=== PATIENT | female | born 1960 | race Two or more races ===

== ENCOUNTER 2023-11-19 18:40 | Inpatient (IN) | payer OTHER ==
[~2023-11-19] VITALS: Ht 170.2 cm; Wt 137.0 kg
[~2023-11-19 18:40] MED LIST: ABILIFY10 MG; AMLODIPINE BESYL5 MG; ATACAND HCT 31 UDTAB; AZITHROMYCIN500 MG PO; CLONAZEPAM0.5 MG; DALMANE30 MG; DOLOGEN CAPLET1 EACH PO; LEVAQUIN750 MG PO; MEDROL4 MG PO; PRISTIQ ER50 MG; PROTONIX20 MG PO; PROVENTIL3 ML/2.5 M IH; TUSICOF LIQUID120 ML PO; TUSSIONEX PENNKI5 ML PO; XOPENEX1.25 MG/0. IH; ZYNCOF 20-400120 ML PO
[2023-11-19] MEDS ORDERED: COZAAR25 MG PO (18:57)
[2023-11-19] MEDS ORDERED: NEURONTIN300 MG PO (18:57)
[2023-11-19] MEDS ORDERED: ATIVAN0.5 M1 PO (18:58)
[2023-11-19] MEDS ORDERED: TOPROL XL50 M1 PO (18:58)
[2023-11-19] MEDS ORDERED: LAMICTAL25 MG PO (18:58)
[2023-11-19] MEDS ORDERED: NIFEDIPINE20 MG PO (18:58)
[2023-11-19] MEDS ORDERED: RESTORIL7.5 MG PO (18:59)
[2023-11-19] MEDS ORDERED: LEVALBUTEROL HCL 1.25 MG/3 ML SOLUTION IH SCH (20:00)
[2023-11-19] MEDS ORDERED: MAGNESIUM SULFATE IN WATER 2 GM/50 ML PIGGYBAG IV ONE (20:00)
[2023-11-19] MEDS ORDERED: METHYLPREDNISOLONE SOD SUCC 125 MG VIAL IV ONE (20:00)
[2023-11-19] MEDS ORDERED: IPRATROPIUM BROMIDE 0.5 MG/2.5 ML AMPUL.NEB IH SCH (20:00)
[2023-11-19 20:35] LABS: HEMATOCRIT 30.7 % (36.0-45.00); HEMOGLOBIN 10.1 g/dL (12.0-15.00); MEAN CORPUSCULAR HEMOGLOBIN 28.1 pg (27.00-32.0); MEAN CORPUSCULAR HGB CONC 33.1 g/dl (32.0-36.0); PLATELET COUNT 256 K/uL (150-450); RED BLOOD COUNT 3.61 M/uL (4.00-6.00); RED CELL DISTRIBUTION WIDTH 16.6 % (11.5-14.5)
[2023-11-19 20:52] LABS: CALCIUM 9.1 mg/dL (8.5-10.1); CREATININE SERUM 1.57 mg/dL (0.55-1.02); GFR 33.49; POTASSIUM 4.29 mEq/L (3.5-5.1)
[2023-11-19] MEDS ORDERED: INSULIN REGULAR, HUMAN 1,000 UNIT/10 ML UNITS SUBCUTANEO ONE (21:45)
[2023-11-19 22:55] LABS: ABG PH 7.402 (7.35-7.45); ABG pCO2 46.6 mmHg (35-45)
[2023-11-19 22:56] LABS: ABG PO2 49.3 mmHg (80-100); BASE EXCESS 2.8 mmol/l; BICARBONATE 28.3 mmol/l (23-25)
[2023-11-19 22:57] LABS: Tco2 29.8 mmol/l; allen test SATISFACTORY; o2 21 %; puncture site RADIAL LEFT
[2023-11-19 22:59] LABS: SaO2 84.9 %
[2023-11-19] MEDS ORDERED: FUROsemide 40 MG/4 ML VIAL IV ONE (23:15)
[2023-11-19] MEDS ORDERED: NITROGLYCERIN IN 5 % DEXTROSE 50 MG/250 ML BOTTLE IV ONE (23:15)
[2023-11-19] MEDS ORDERED: OSELTAMIVIR PHOSPHATE 75 MG CAPSULE PO SCH (23:26)
[2023-11-19] MEDS ORDERED: ACETAMINOPHEN 500 MG GEL..CAP PO PRN (23:30)
[2023-11-19] MEDS ORDERED: DEXTROSE 50 % IN WATER 0.5 G/ML DISP.SYRIN IV PRN (23:30)
[2023-11-19] MEDS ORDERED: CEFTRIAXONE SODIUM 2,000 MG in 0.9 % SODIUM CHLORIDE 100 ML IV SCH (23:30)
[2023-11-19] MEDS ORDERED: INSULIN LISPRO 1,000 UNIT/10 ML UNITS SUBCUTANEO PRN (23:30)
[2023-11-19] MEDS ORDERED: NITROGLYCERIN IN 5 % DEXTROSE 250 ML IV SCH (23:39)
[2023-11-20] MEDS ORDERED: LEVALBUTEROL HCL 1.25 MG/3 ML SOLUTION IH SCH (01:00)
[2023-11-20] MEDS ORDERED: IPRATROPIUM BROMIDE 0.5 MG/2.5 ML AMPUL.NEB IH SCH (01:00)
[2023-11-20 01:48] LABS: INR 1.03; PARTIAL THROMBOPLASTIN TIME 23.9 SECONDS (22.0-34.0); PROTHROMBIN TIME 10.8 SECONDS (9.0-11.5)
[2023-11-20 01:49] LABS: MAGNESIUM 2.3 mg/dL (1.8-2.4); PHOSPHOROUS 3.5 mg/dL (2.5-4.9)
[2023-11-20 02:45] LABS: PH,URINE 5.5 (5.0-8.0); URINE APPEARANCE Clear; URINE BILIRRUBIN Negative (NEGATIVE); URINE BLOOD Trace; URINE COLOR Yellow; URINE LEUKOCYTE Negative; URINE NITRATE Negative
[2023-11-20 02:48] LABS: URINE EPITHELIAL CELLS 1.8 uL (0.0-38.8); URINE RBC 3.1 uL (0.0-20.8); URINE WBC 4.3 uL (0.0-23.2)
[2023-11-20 02:50] LABS: URINE GLUCOSE >=1000 MG/DL (NEGATIVE); URINE PROTEIN 300 (NEGATIVE)
[2023-11-20 06:28] LABS: ABG PH 7.388 (7.35-7.45); ABG PO2 96.2 mmHg (80-100); ABG pCO2 44.9 mmHg (35-45); BICARBONATE 26.4 mmol/l (23-25); SaO2 97.4 %; Tco2 27.8 mmol/l; o2 32 %; puncture site RADIAL RIGHT
[2023-11-20 06:29] LABS: allen test SATISFACTORY
[2023-11-20] MEDS ORDERED: FUROsemide 20 MG/2 ML VIAL IV SCH (09:00)
[2023-11-20] MEDS ORDERED: FAMOTIDINE/PF 20 MG in 0.9 % SODIUM CHLORIDE 8 ML IV PUSH SCH (09:00)
[2023-11-20] MEDS ORDERED: PATIENTS OWN MEDICATION (MEDICAMENTO EN PISO) PO SCH ×2 (09:00)
[2023-11-20] MEDS ORDERED: OSELTAMIVIR PHOSPHATE 30MG CAP PO SCH (09:00)
[2023-11-20] MEDS ORDERED: GABAPENTIN 800 MG TABLET PO SCH (09:00)
[2023-11-20] MEDS ORDERED: ENOXAPARIN SODIUM 30 MG/0.3 ML SYRINGE SUBCUTANEO SCH (09:00)
[2023-11-20] MEDS ORDERED: AZITHROMYCIN 500 MG in DEXTROSE 5 % IN WATER 250 ML IV SCH (09:00)
[2023-11-20] MEDS ORDERED: INSULIN GLARGINE,HUM.REC.ANLOG 1,000 UNITS/10 ML UNITS SUBCUTANEO STA (09:41)
[2023-11-20] MEDS ORDERED: MONTELUKAST SODIUM 10 MG TABLET PO SCH (17:00)
[2023-11-20] MEDS ORDERED: VANCOMYCIN HCL 5 MG/ML REDILUIDO IV SCH (17:00)
[2023-11-20] MEDS ORDERED: CEFEPIME HCL 2,000 MG VIAL IV SCH (21:00)
[2023-11-21 08:14] LABS: ALBUMIN 2.6 gm/dL (3.4-5.0); BILIRUBIN TOTAL 0.3 mg/dL (0.3-1.2); CALCIUM 8.8 mg/dL (8.5-10.1); CREATININE SERUM 1.4 mg/dL (0.55-1.02); GFR 38.23; GLOBULINA 3.6 G/DL (2.4-3.5); MAGNESIUM 2.2 mg/dL (1.8-2.4); PHOSPHOROUS 3.7 mg/dL (2.5-4.9); POTASSIUM 4.21 mEq/L (3.5-5.1); TOTAL PROTEIN 6.2 gm/dL (6.4-8.2)
[2023-11-21 08:30] LABS: C-REACTIVE PROTEIN 1.74 MG/DL (0.00-0.29)
[2023-11-21] MEDS ORDERED: INSULIN GLARGINE,HUM.REC.ANLOG 1,000 UNITS/10 ML UNITS SUBCUTANEO SCH ×2 (09:00)
[2023-11-21] MEDS ORDERED: INSULIN LISPRO 1,000 UNIT/10 ML UNITS SUBCUTANEO SCH (12:00)
[2023-11-21 13:23] LABS: HEMATOCRIT 27.2 % (36.0-45.00); MEAN CELL VOLUME 85.4 fL (80.00-100.00); MEAN CORPUSCULAR HEMOGLOBIN 28.2 pg (27.00-32.0); RED BLOOD COUNT 3.18 M/uL (4.00-6.00); RED CELL DISTRIBUTION WIDTH 16.8 % (11.5-14.5)
[2023-11-21 14:03] LABS: PLATELET COUNT 194 K/uL (150-450)
[2023-11-21] MEDS ORDERED: FAMOTIDINE/PF 20 MG in 0.9 % SODIUM CHLORIDE 8 ML IV PUSH SCH (21:00)
[2023-11-21] MEDS ORDERED: LORazepam 1 MG TABLET PO SCH (21:00)
[2023-11-22 09:08] LABS: URINE PROT QUANT 24HR 218.8 MG/DL
[2023-11-22 09:18] LABS: URINE PROT QUANT 24 HR 4868.3 MG/24HR (42-225)
[2023-11-22] MEDS ORDERED: ISOSORBIDE MONONITRATE 30 MG TABLET PO STA (10:04)
[2023-11-23] MEDS ORDERED: GUAIFENESIN/DEXTROMETHORPHAN 100 MG/5 ML ML PO SCH
[2023-11-23 06:49] LABS: HEMATOCRIT 26.3 % (36.0-45.00); MEAN CELL VOLUME 84.7 fL (80.00-100.00); MEAN CORPUSCULAR HGB CONC 33.3 g/dl (32.0-36.0); PLATELET COUNT 195 K/uL (150-450); RED CELL DISTRIBUTION WIDTH 16.4 % (11.5-14.5)
[2023-11-23 06:50] LABS: HEMOGLOBIN 8.8 g/dL (12.0-15.00); MEAN CORPUSCULAR HEMOGLOBIN 28.3 pg (27.00-32.0)
[2023-11-23 07:04] LABS: ALBUMIN 2.5 gm/dL (3.4-5.0); BILIRUBIN TOTAL 0.39 mg/dL (0.3-1.2); CALCIUM 8.6 mg/dL (8.5-10.1); CREATININE SERUM 1.25 mg/dL (0.55-1.02); GFR 43.57; MAGNESIUM 2.3 mg/dL (1.8-2.4); PHOSPHOROUS 3.4 mg/dL (2.5-4.9); POTASSIUM 4.6 mEq/L (3.5-5.1); TOTAL PROTEIN 6.5 gm/dL (6.4-8.2)
[2023-11-23 07:20] LABS: C-REACTIVE PROTEIN 5.54 MG/DL (0.00-0.29)
[2023-11-23] MEDS ORDERED: ISOSORBIDE MONONITRATE 30 MG TABLET PO SCH (09:00)
[2023-11-25 11:58] LABS: ABG PH 7.389 (7.35-7.45); ABG pCO2 52.6 mmHg (35-45)
[2023-11-25 11:59] LABS: ABG PO2 56.9 mmHg (80-100); BASE EXCESS 4.7 mmol/l; Tco2 32.6 mmol/l; allen test SATISFACTORY; o2 21 %; puncture site BRADIAL LEFT
[2023-11-25 12:01] LABS: SaO2 89.3 %
[2023-11-26] MEDS ORDERED: FAMOTIDINE/PF 20 MG/2 ML VIAL ONE (07:51)
[2023-11-26] MEDS ORDERED: NIFEDIPINE 30 MG TAB.SA.OSM PO SCH (09:00)
[2023-11-26] MEDS ORDERED: LOSARTAN POTASSIUM 50 MG TABLET PO SCH (09:22)
[2023-11-26] MEDS ORDERED: INSULIN LISPRO 1,000 UNIT/10 ML UNITS SUBCUTANEO SCH (17:00)
[2023-11-26] MEDS ORDERED: MAGNESIUM SULFATE 1,000 MG in 0.9 % SODIUM CHLORIDE 50 ML IV ONE (17:15)
[2023-11-26] MEDS ORDERED: POTASSIUM CHLORIDE IN WATER 100 ML IV ONE (17:15)
[2023-11-26] MEDS ORDERED: AMIODARONE HCL 50 MG/ML AMPUL IV ONE (17:15)
[2023-11-26] MEDS ORDERED: MAGNESIUM SULFATE/D5W 1GM/100ML PIGGYBAG IV ONE (17:16)
[2023-11-26 17:44] LABS: MAGNESIUM 2.2 mg/dL (1.8-2.4); PHOSPHOROUS 2.9 mg/dL (2.5-4.9); POTASSIUM 4.14 mEq/L (3.5-5.1)
[2023-11-26 17:46] LABS: ALBUMIN 2.6 gm/dL (3.4-5.0); BILIRUBIN TOTAL 0.33 mg/dL (0.3-1.2); CALCIUM 8.7 mg/dL (8.5-10.1); CREATININE SERUM 1.23 mg/dL (0.55-1.02); GFR 44.39; GLOBULINA 3.9 G/DL (2.4-3.5); POTASSIUM 4.13 mEq/L (3.5-5.1); TOTAL PROTEIN 6.5 gm/dL (6.4-8.2)
[2023-11-27] MEDS ORDERED: INSULIN GLARGINE,HUM.REC.ANLOG 1,000 UNITS/10 ML UNITS SUBCUTANEO SCH (09:00)
[2023-11-28] MEDS ORDERED: INSULIN LISPRO 1,000 UNIT/10 ML UNITS SUBCUTANEO SCH (12:37)
[2023-11-28 19:07] LABS: ABG PO2 48.6 mmHg (80-100); ABG pCO2 48.6 mmHg (35-45); BASE EXCESS 6.8 mmol/l; BICARBONATE 32.3 mmol/l (23-25); SaO2 86.3 %; Tco2 33.8 mmol/l; o2 21 %
[2023-11-28 19:08] LABS: allen test SATISFACTORY; puncture site RADIAL RIGHT
[2023-11-28 19:08] LABS: CALCIUM 8.4 mg/dL (8.5-10.1); CREATININE SERUM 1.5 mg/dL (0.55-1.02); GFR 35.3; POTASSIUM 4.53 mEq/L (3.5-5.1)
[2023-11-28] MEDS ORDERED: 0.9 % SODIUM CHLORIDE 1,000 ML IV SCH (20:00)
[2023-11-28] MEDS ORDERED: KETOROLAC TROMETHAMINE 30 MG VIAL IM ONE (23:00)
[2023-11-29 06:54] LABS: ALBUMIN 2.4 gm/dL (3.4-5.0); BILIRUBIN TOTAL 0.27 mg/dL (0.3-1.2); CALCIUM 8.7 mg/dL (8.5-10.1); CREATININE SERUM 1.42 mg/dL (0.55-1.02); GFR 37.61; GLOBULINA 3.9 G/DL (2.4-3.5); POTASSIUM 4.29 mEq/L (3.5-5.1); TOTAL PROTEIN 6.3 gm/dL (6.4-8.2)
[2023-11-29] MEDS ORDERED: FUROsemide 40 MG/4 ML VIAL IV SCH (09:00)
[2023-11-29] MEDS ORDERED: METHYLPREDNISOLONE SOD SUCC 40 MG VIAL IV ONE (18:30)
[2023-11-29] MEDS ORDERED: KETOROLAC TROMETHAMINE 30 MG VIAL IM SCH (21:00)
[2023-11-30 07:13] LABS: MEAN CELL VOLUME 84.9 fL (80.00-100.00); MEAN CORPUSCULAR HGB CONC 33.7 g/dl (32.0-36.0); PLATELET COUNT 254 K/uL (150-450); RED BLOOD COUNT 2.95 M/uL (4.00-6.00); RED CELL DISTRIBUTION WIDTH 15.9 % (11.5-14.5)
[2023-11-30 07:20] LABS: HEMOGLOBIN 8.4 g/dL (12.0-15.00); MEAN CORPUSCULAR HEMOGLOBIN 28.4 pg (27.00-32.0)
[2023-11-30] MEDS ORDERED: NIFEDIPINE 60 MG TAB.SA.OSM PO SCH (09:00)
[2023-11-30] MEDS ORDERED: NITROGLYCERIN IN 5 % DEXTROSE 250 ML IV SCH (11:15)
[2023-11-30 11:30] LABS: ABG PH 7.392 (7.35-7.45)
[2023-11-30 11:31] LABS: ABG PO2 69.9 mmHg (80-100); ABG pCO2 51.4 mmHg (35-45); BASE EXCESS 4.4 mmol/l; BICARBONATE 30.6 mmol/l (23-25); SaO2 93.8 %; Tco2 32.2 mmol/l; allen test SATISFACTORY; o2 40 %; puncture site RADIAL RIGHT
[2023-12-01 07:23] LABS: ALBUMIN 2.5 gm/dL (3.4-5.0); BILIRUBIN TOTAL 0.3 mg/dL (0.3-1.2); CALCIUM 8.8 mg/dL (8.5-10.1); CREATININE SERUM 1.4 mg/dL (0.55-1.02); GFR 38.23; POTASSIUM 4.21 mEq/L (3.5-5.1); TOTAL PROTEIN 6.5 gm/dL (6.4-8.2)
[2023-12-01 07:26] LABS: HEMATOCRIT 24.5 % (36.0-45.00); MEAN CELL VOLUME 84.6 fL (80.00-100.00); MEAN CORPUSCULAR HEMOGLOBIN 28.2 pg (27.00-32.0); MEAN CORPUSCULAR HGB CONC 33.3 g/dl (32.0-36.0); PLATELET COUNT 286 K/uL (150-450); RED CELL DISTRIBUTION WIDTH 16.6 % (11.5-14.5)
[2023-12-01 07:29] LABS: HEMOGLOBIN 8.2 g/dL (12.0-15.00)
[2023-12-01] MEDS ORDERED: ENALAPRILAT DIHYDRATE 1.25 MG/ML VIAL IV ONE (15:47)
[2023-12-01] MEDS ORDERED: INSULIN LISPRO 1,000 UNIT/10 ML UNITS SUBCUTANEO ONE (17:33)
[2023-12-02] MEDS ORDERED: INSULIN GLARGINE,HUM.REC.ANLOG 1,000 UNITS/10 ML UNITS SUBCUTANEO SCH (09:00)
[2023-12-02] MEDS ORDERED: NIFEDIPINE 60 MG TAB.SA.OSM PO SCH (09:00)
[2023-12-02] MEDS ORDERED: FAMOTIDINE/PF 20 MG in 0.9 % SODIUM CHLORIDE 8 ML IV PUSH SCH (10:08)
[2023-12-02] MEDS ORDERED: ENALAPRILAT DIHYDRATE 1.25 MG/ML VIAL IV PRN (10:15)
[2023-12-02] MEDS ORDERED: FUROsemide 40 MG/4 ML VIAL IV ONE (15:00)
[2023-12-02 22:23] LABS: ABG PO2 93.3 mmHg (80-100); ABG pCO2 49.8 mmHg (35-45); BICARBONATE 30.8 mmol/l (23-25); SaO2 97.4 %; Tco2 32.3 mmol/l; allen test SATISFACTORY; o2 50 %; puncture site RADIAL RIGHT
[2023-12-03] MEDS ORDERED: INSULIN GLARGINE,HUM.REC.ANLOG 1,000 UNITS/10 ML UNITS SUBCUTANEO STA (08:42)
[2023-12-03] MEDS ORDERED: FUROsemide 20 MG/2 ML VIAL IV SCH (09:00)
[2023-12-03] MEDS ORDERED: INSULIN GLARGINE,HUM.REC.ANLOG 1,000 UNITS/10 ML UNITS SUBCUTANEO SCH (09:00)
[2023-12-03] MEDS ORDERED: 0.9 % SODIUM CHLORIDE 10 ML VIAL IJ ONE (16:39)
[2023-12-04] MEDS ORDERED: INSULIN LISPRO 1,000 UNIT/10 ML UNITS SUBCUTANEO SCH (08:00)
[2023-12-04] MEDS ORDERED: INSULIN REGULAR, HUMAN 1,000 UNIT/10 ML UNITS IV STA (12:53)
[2023-12-05] MEDS ORDERED: 0.9 % SODIUM CHLORIDE 10 ML VIAL IJ ONE (08:51)
[2023-12-05] MEDS ORDERED: LOSARTAN POTASSIUM 50 MG,LOSARTAN POTASSIUM 25 MG PO SCH (09:00)
[2023-12-05] MEDS ORDERED: FUROsemide 40 MG TABLET PO SCH (09:00)
[2023-12-05 12:07] LABS: HEMATOCRIT 25.2 % (36.0-45.00); MEAN CORPUSCULAR HEMOGLOBIN 28.6 pg (27.00-32.0); MEAN CORPUSCULAR HGB CONC 33.3 g/dl (32.0-36.0); PLATELET COUNT 293 K/uL (150-450); RED BLOOD COUNT 2.93 M/uL (4.00-6.00); RED CELL DISTRIBUTION WIDTH 16.7 % (11.5-14.5)
[2023-12-05 12:11] LABS: HEMOGLOBIN 8.4 g/dL (12.0-15.00)
[2023-12-05 12:40] LABS: CALCIUM 9.1 mg/dL (8.5-10.1); CREATININE SERUM 1.54 mg/dL (0.55-1.02); GFR 34.25; POTASSIUM 4.91 mEq/L (3.5-5.1)
[2023-12-05] MEDS ORDERED: INSULIN REGULAR, HUMAN 1,000 UNIT/10 ML UNITS IV STA (15:28)
[2023-12-05] MEDS ORDERED: INSULIN LISPRO 1,000 UNIT/10 ML UNITS SUBCUTANEO STA (15:29)
[2023-12-05] MEDS ORDERED: INSULIN LISPRO 1,000 UNIT/10 ML UNITS SUBCUTANEO SCH (17:00)
[2023-12-05] MEDS ORDERED: GLUCAGON 1 MG VIAL IV STA (22:53)
[2023-12-06] MEDS ORDERED: GLUCAGON 1 MG VIAL IM STA ×2 (00:17→03:00)
[2023-12-06] MEDS ORDERED: LOSARTAN POTASSIUM 50 MG TABLET PO ONE (07:19)
[2023-12-06] MEDS ORDERED: FAMOTIDINE/PF 20 MG/2 ML VIAL ONE (07:20)
[2023-12-06] MEDS ORDERED: INSULIN GLARGINE,HUM.REC.ANLOG 1,000 UNITS/10 ML UNITS SUBCUTANEO SCH ×2 (09:00→21:00)
[2023-12-06] MEDS ORDERED: LOSARTAN POTASSIUM 100 MG TABLET PO SCH (09:00)
[2023-12-06] MEDS ORDERED: INSULIN LISPRO 1,000 UNIT/10 ML UNITS SUBCUTANEO SCH (12:00)
[2023-12-07] MEDS ORDERED: INSULIN LISPRO 1,000 UNIT/10 ML UNITS SUBCUTANEO ONE (02:30)
[2023-12-07] MEDS ORDERED: hydrALAZINE HCL 25 MG TABLET PO SCH (09:00)
[2023-12-07] MEDS ORDERED: DIPHENHYDRAMINE HCL 50 MG/ML VIAL 1ML IV STA (09:58)
[2023-12-07 10:17] LABS: HEMATOCRIT 27.5 % (36.0-45.00); HEMOGLOBIN 9.4 g/dL (12.0-15.00); MEAN CELL VOLUME 83.6 fL (80.00-100.00); MEAN CORPUSCULAR HEMOGLOBIN 28.5 pg (27.00-32.0); MEAN CORPUSCULAR HGB CONC 34.1 g/dl (32.0-36.0); PLATELET COUNT 288 K/uL (150-450); RED BLOOD COUNT 3.29 M/uL (4.00-6.00); RED CELL DISTRIBUTION WIDTH 17.2 % (11.5-14.5)
[2023-12-08] MEDS ORDERED: INSULIN LISPRO 1,000 UNIT/10 ML UNITS SUBCUTANEO SCH (08:00)
[2023-12-08] MEDS ORDERED: INSULIN GLARGINE,HUM.REC.ANLOG 1,000 UNITS/10 ML UNITS SUBCUTANEO SCH (09:00)
== END 2023-12-09 16:42 | disposition home or self-care (01) | DRG 291 ==
LOC: ER → ICU-2 23:32 → SURH 23:32 → MEDJ 11-20 15:02 → SURH 11-24 22:14
PROVIDERS: General Practice; Internal Medicine; Internal Medicine Infectious Disease; Internal Medicine Nephrology; ADMIT Internal Medicine; ATTEND Internal Medicine
PROC: BB24ZZZ Computerized Tomography (CT Scan) of Bilateral Lungs (ICD-10-PCS; principal; 2023-11-19)
PROC: B246ZZZ Ultrasonography of Right and Left Heart (ICD-10-PCS; 2023-11-19)
PROC: 0JBQ3ZZ Excision of Right Foot Subcutaneous Tissue and Fascia, Percutaneous Approach (ICD-10-PCS; 2023-11-27)
PROC: 0JBR3ZZ Excision of Left Foot Subcutaneous Tissue and Fascia, Percutaneous Approach (ICD-10-PCS; 2023-11-27)
PROC: CB121ZZ Planar Nuclear Medicine Imaging of Lungs and Bronchi using Technetium 99m (Tc-99m) (ICD-10-PCS; 2023-11-28)
PROC: B54DZZZ Ultrasonography of Bilateral Lower Extremity Veins (ICD-10-PCS; 2023-11-29)
PROC: B246ZZ4 Ultrasonography of Right and Left Heart, Transesophageal (ICD-10-PCS; 2023-12-01)
PROC: 5A09457 Assistance with Respiratory Ventilation, 24-96 Consecutive Hours, Continuous Positive Airway Pressure (ICD-10-PCS; 2023-12-01)
PROC: 30233N1 Transfusion of Nonautologous Red Blood Cells into Peripheral Vein, Percutaneous Approach (ICD-10-PCS; 2023-12-06)
DX: I13.0 Hypertensive heart and chronic kidney disease with heart failure and stage 1 through stage 4 chronic kidney disease, or unspecified chronic kidney disease (principal); I50.33 Acute on chronic diastolic (congestive) heart failure; J11.00 Influenza due to unidentified influenza virus with unspecified type of pneumonia; J90 Pleural effusion, not elsewhere classified; L03.116 Cellulitis of left lower limb; L03.115 Cellulitis of right lower limb; L97.528 Non-pressure chronic ulcer of other part of left foot with other specified severity; L97.518 Non-pressure chronic ulcer of other part of right foot with other specified severity; N17.8 Other acute kidney failure; J44.1 Chronic obstructive pulmonary disease with (acute) exacerbation; N18.9 Chronic kidney disease, unspecified; E11.22 Type 2 diabetes mellitus with diabetic chronic kidney disease; E11.621 Type 2 diabetes mellitus with foot ulcer; F43.23 Adjustment disorder with mixed anxiety and depressed mood; Z87.891 Personal history of nicotine dependence; Z79.4 Long term (current) use of insulin; E11.40 Type 2 diabetes mellitus with diabetic neuropathy, unspecified; E03.8 Other specified hypothyroidism; E11.649 Type 2 diabetes mellitus with hypoglycemia without coma; I73.89 Other specified peripheral vascular diseases; E66.01 Morbid (severe) obesity due to excess calories; D64.9 Anemia, unspecified; Z79.85 Long-term (current) use of injectable non-insulin antidiabetic drugs

== ENCOUNTER 2023-12-09 21:01 | Inpatient (IN) | payer OTHER ==
[~2023-12-09] VITALS: Ht 170.2 cm; Wt 137.0 kg
[~2023-12-09 21:01] MED LIST changes: +ATIVAN0.5 M1 PO; +COZAAR25 MG PO; +LAMICTAL25 MG PO; +NEURONTIN300 MG PO; +NIFEDIPINE20 MG PO; +RESTORIL7.5 MG PO; +TOPROL XL50 M1 PO
[2023-12-09] MEDS ORDERED: 0.9 % SODIUM CHLORIDE 1,000 ML IV STA (21:29)
--- NOTE | 2023-12-09 21:50 | NUR ---
SE RECIBE PTE ALERTA Y ORIENTADA X3 EN AMBULANCIA CUAL REFIER EDIFICULTAD RESPIRATORIA. SE OBSERVA PTE RESPIRANDO ABDOMINAL Y COMUNICANDOSE EN FRASES CORTAS. SE OBSERVA EDEME EN AMBAS EXTREMIDADES SUPERIORES Y ABDOMEN. PRESENTA EDEMA Y ERITEMA EN AMBAS PIERNAS. SE OBSERVA ABRASION SINSANGRADO EN LA PLANTA DEL PIE LADO DERECHO. VENTURY MASK AL 50%. SE BEVERLY S/V, SE CONECTA A MO ITOR CARDIACO Y OXIMETRIA DE PULSO CONTINUA. VENOPUNCIONES X3 PATENTES EN H/L ARLETH DE EDEMA YERITEMA. EVALUA A PTE Y ORDENA TRATAMIENTO MEDICO.
[2023-12-09 21:54] LABS: ERYTHROCYTE SEDIMENTATION RATE > 130 mm/hr
[2023-12-09 21:57] LABS: HEMATOCRIT 29.3 % (36.0-45.00); HEMOGLOBIN 9.7 g/dL (12.0-15.00); MEAN CELL VOLUME 84.5 fL (80.00-100.00); MEAN CORPUSCULAR HEMOGLOBIN 27.9 pg (27.00-32.0); PLATELET COUNT 300 K/uL (150-450); RED BLOOD COUNT 3.47 M/uL (4.00-6.00); RED CELL DISTRIBUTION WIDTH 16.7 % (11.5-14.5)
[2023-12-09] MEDS ORDERED: IPRATROPIUM BROMIDE 0.5 MG/2.5 ML AMPUL.NEB IH SCH (22:14)
[2023-12-09] MEDS ORDERED: NITROGLYCERIN IN 5 % DEXTROSE 250 ML IV SCH (22:14)
[2023-12-09] MEDS ORDERED: FUROsemide 40 MG/4 ML VIAL IV ONE (22:15)
[2023-12-09] MEDS ORDERED: ENOXAPARIN SODIUM 40 MG/0.4 ML SYRINGE SUBCUTANEO SCH (22:26)
[2023-12-09] MEDS ORDERED: INSULIN LISPRO 1,000 UNIT/10 ML UNITS SUBCUTANEO PRN (22:30)
[2023-12-09] MEDS ORDERED: GABAPENTIN 600 MG TABLET PO ONE (22:30)
[2023-12-09] MEDS ORDERED: ONDANSETRON HCL 4 MG in 0.9 % SODIUM CHLORIDE 50 ML IV PRN (22:30)
[2023-12-09] MEDS ORDERED: DEXTROSE 50 % IN WATER 0.5 G/ML DISP.SYRIN IV PRN (22:30)
[2023-12-09] MEDS ORDERED: ACETAMINOPHEN 500 MG GEL..CAP PO PRN (22:30)
[2023-12-09 22:34] LABS: ALBUMIN 2.8 gm/dL (3.4-5.0); BILIRUBIN TOTAL 0.36 mg/dL (0.3-1.2); CREATININE SERUM 1.38 mg/dL (0.55-1.02); GFR 38.87; GLOBULINA 4.9 G/DL (2.4-3.5); POTASSIUM 4.52 mEq/L (3.5-5.1); TOTAL PROTEIN 7.7 gm/dL (6.4-8.2)
[2023-12-09 22:34] LABS: PH,URINE 5.5 (5.0-8.0); URINE APPEARANCE Clear; URINE BILIRRUBIN Negative (NEGATIVE); URINE BLOOD Negative; URINE COLOR Yellow; URINE LEUKOCYTE Negative; URINE NITRATE Negative; URINE UROBILINOGEN 0.2 E.U./dl
[2023-12-09 22:38] LABS: URINE BACTERIA 6.2 uL (0.0-1933); URINE EPITHELIAL CELLS 2.3 uL (0.0-38.8); URINE RBC 4.7 uL (0.0-20.8); URINE WBC 3.7 uL (0.0-23.2)
[2023-12-09 22:38] LABS: C-REACTIVE PROTEIN 1.61 MG/DL (0.00-0.29)
[2023-12-09 22:56] LABS: URINE GLUCOSE 100 MG/DL (NEGATIVE); URINE PROTEIN 300 (NEGATIVE)
[2023-12-09] MEDS ORDERED: MEPERIDINE HCL/PF 25 MG/ML VIAL IM ONE (23:15)
[2023-12-09] MEDS ORDERED: PROMETHAZINE HCL 50 MG/ML AMPUL IM ONE (23:15)
[2023-12-10] MEDS ORDERED: FUROsemide 20 MG/2 ML VIAL IV SCH (01:00)
[2023-12-10 01:13] LABS: INR 0.98; PARTIAL THROMBOPLASTIN TIME 25.9 SECONDS (22.0-34.0); PROTHROMBIN TIME 10.3 SECONDS (9.0-11.5)
[2023-12-10 02:06] LABS: ABG PH 7.368 (7.35-7.45); ABG PO2 93.1 mmHg (80-100); BASE EXCESS 7.2 mmol/l; BICARBONATE 34.9 mmol/l (23-25); SaO2 97.1 %; Tco2 36.8 mmol/l; allen test SATISFACTORY; o2 50 %; puncture site RADIAL LEFT
[2023-12-10] MEDS ORDERED: FAMOTIDINE/PF 20 MG in 0.9 % SODIUM CHLORIDE 8 ML IV PUSH SCH (09:00)
[2023-12-10] MEDS ORDERED: ATORVASTATIN CALCIUM 40 MG TABLET PO SCH (09:00)
[2023-12-10] MEDS ORDERED: BUMETANIDE 2.5 MG/10 ML VIAL IV SCH (10:05)
[2023-12-10] MEDS ORDERED: NIFEDIPINE 60 MG TAB.SA.OSM PO SCH (10:35)
[2023-12-10] MEDS ORDERED: DOXAZOSIN MESYLATE 2 MG TABLET PO SCH (17:00)
[2023-12-10] MEDS ORDERED: TRAMADOL HCL 50 MG TABLET PO SCH (21:00)
[2023-12-11] MEDS ORDERED: METHYLPREDNISOLONE SOD SUCC 40 MG VIAL IV SCH (09:00)
[2023-12-11] MEDS ORDERED: FAMOTIDINE/PF 20 MG/2 ML VIAL ONE (09:40)
[2023-12-12 05:53] LABS: PH,URINE 6.5 (5.0-8.0); URINE APPEARANCE Clear; URINE BILIRRUBIN Negative (NEGATIVE); URINE BLOOD Small; URINE COLOR Yellow; URINE LEUKOCYTE Trace; URINE NITRATE Negative; URINE UROBILINOGEN 0.2 E.U./dl
[2023-12-12 05:56] LABS: URINE BACTERIA 69.2 uL (0.0-1933); URINE EPITHELIAL CELLS 3.5 uL (0.0-38.8); URINE RBC 48.1 uL (0.0-20.8); URINE WBC 95.3 uL (0.0-23.2)
[2023-12-12 05:57] LABS: URINE GLUCOSE >=1000 MG/DL (NEGATIVE); URINE PROTEIN 300 (NEGATIVE)
[2023-12-12] MEDS ORDERED: DOXAZOSIN MESYLATE 4 MG TABLET PO SCH (09:00)
[2023-12-12] MEDS ORDERED: BUMETANIDE 2.5 MG/10 ML VIAL IV SCH (09:00)
[2023-12-12] MEDS ORDERED: TRAMADOL HCL 50 MG TABLET PO PRN (17:45)
[2023-12-12 19:59] LABS: PLEURAL FLUID APPEARANCE HAZY; PLEURAL FLUID COLOR YELLOW
[2023-12-12 20:13] LABS: TP PLEURAL FLUID 1.8 g/dl
[2023-12-12 21:00] LABS: POLYMORPHONUCLEAR 3 %
[2023-12-12 21:01] LABS: MONONUCLEAR 97 %
[2023-12-13] MEDS ORDERED: INSULIN REGULAR, HUMAN 1,000 UNIT/10 ML UNITS IV STA (13:59)
[2023-12-13] MEDS ORDERED: INSULIN GLARGINE,HUM.REC.ANLOG 1,000 UNITS/10 ML UNITS SUBCUTANEO ONE (14:00)
[2023-12-14] MEDS ORDERED: KETOROLAC TROMETHAMINE 30 MG VIAL IV PRN (01:30)
[2023-12-14] MEDS ORDERED: INSULIN LISPRO 1,000 UNIT/10 ML UNITS SUBCUTANEO SCH (08:00)
[2023-12-14 08:25] LABS: ABG PH 7.473 (7.35-7.45); ABG PO2 86.5 mmHg (80-100); BASE EXCESS 8.1 mmol/l; SaO2 97.4 %; Tco2 34.4 mmol/l; allen test SATISFACTORY; o2 21 %; puncture site RADIAL RIGHT
[2023-12-14] MEDS ORDERED: DOXAZOSIN MESYLATE 8 MG TABLET PO SCH (09:00)
[2023-12-14] MEDS ORDERED: BUMETANIDE 1 MG TABLET PO SCH (09:00)
[2023-12-14] MEDS ORDERED: INSULIN GLARGINE,HUM.REC.ANLOG 1,000 UNITS/10 ML UNITS SUBCUTANEO SCH (09:00)
[2023-12-14] MEDS ORDERED: KETOROLAC TROMETHAMINE 30 MG VIAL IM SCH (17:00)
[2023-12-15] MEDS ORDERED: INSULIN GLARGINE,HUM.REC.ANLOG 1,000 UNITS/10 ML UNITS SUBCUTANEO SCH ×2 (09:00→17:00)
[2023-12-15] MEDS ORDERED: CARVEDILOL 3.125 MG TABLET PO SCH (17:00)
[2023-12-16] MEDS ORDERED: METHYLPREDNISOLONE SOD SUCC 40 MG VIAL IV SCH (01:00)
[2023-12-16] MEDS ORDERED: ISOSORBIDE MONONITRATE 30 MG TABLET PO SCH (09:00)
[2023-12-16] MEDS ORDERED: INSULIN LISPRO 1,000 UNIT/10 ML UNITS SUBCUTANEO SCH (12:00)
== END 2023-12-16 15:17 | disposition home or self-care (01) | DRG 202 ==
LOC: ER 21:01 → ICU-2 22:40 → ICU 22:40 → MEDI 12-11 18:28
PROVIDERS: General Practice; Internal Medicine Infectious Disease; Radiology Vascular & Interventional Radiology; ADMIT Internal Medicine; ATTEND Internal Medicine
PROC: BW24ZZZ Computerized Tomography (CT Scan) of Chest and Abdomen (ICD-10-PCS; 2023-12-09)
PROC: 4A12X4Z Monitoring of Cardiac Electrical Activity, External Approach (ICD-10-PCS; 2023-12-11)
PROC: 0W993ZZ Drainage of Right Pleural Cavity, Percutaneous Approach (ICD-10-PCS; principal; 2023-12-12)
PROC: B54DZZZ Ultrasonography of Bilateral Lower Extremity Veins (ICD-10-PCS; 2023-12-12)
DX: J45.901 Unspecified asthma with (acute) exacerbation (principal); J90 Pleural effusion, not elsewhere classified; N17.9 Acute kidney failure, unspecified; L97.429 Non-pressure chronic ulcer of left heel and midfoot with unspecified severity; L97.419 Non-pressure chronic ulcer of right heel and midfoot with unspecified severity; Z68.42 Body mass index [BMI] 45.0-49.9, adult; R09.02 Hypoxemia; I27.20 Pulmonary hypertension, unspecified; E11.9 Type 2 diabetes mellitus without complications; Z79.4 Long term (current) use of insulin; D64.9 Anemia, unspecified; I87.2 Venous insufficiency (chronic) (peripheral); E66.9 Obesity, unspecified

== ENCOUNTER 2025-04-21 19:57 | Emergency (ER) | payer OTHER ==
[~2025-04-21] VITALS: Ht 170.2 cm; Wt 120.2 kg
[2025-04-21] MEDS ORDERED: KETOROLAC TROMETHAMINE 30 MG VIAL IV ONE (20:45)
[2025-04-21] MEDS ORDERED: 0.9 % SODIUM CHLORIDE 1,000 ML IV ONE (20:45)
[2025-04-21] MEDS ORDERED: LABETALOL HCL 100 MG/20 ML ML IV ONE (21:00)
[2025-04-21 21:49] LABS: BASO % 0.6 % (0.1-1.2); EOS # 0.15 (0.04-0.54); EOS % 1.9 % (0.7-7.0); LYMPH # 1.08 (1.18-3.74); LYMPH % 13.7 % (19.3-53.1); MEAN PLATELET VOLUME 9.80 fl (9.4-12.4); MONO # 0.51 (0.24-0.82); MONO % 6.5 % (4.7-12.5); NEUT # 6.08 (1.56-6.13); NEUT % 77.0 % (34.0-71.1); RED CELL DISTRIBUTION WIDTH 12.6 % (11.6-14.4)
[2025-04-21 22:09] LABS: INR 0.94
[2025-04-21 22:13] LABS: ALT/SGPT 165.0 U/L (12-78); AST/SGOT 81.0 U/L (15-37); BILIRUBIN TOTAL 0.26 mg/dL (0.3-1.2); BUN CREA RATIO 20.0 (7.0-25.0); CREATININE SERUM 1.68 mg/dL (0.55-1.02); GFR 30.87; GLOBULINA 4.6 G/DL (2.4-3.5); OSMOLALITY SERUM 299.0 MOSM/KG (275-295)
[2025-04-21 22:21] LABS: GLUCOSE FASTING 229.0 mg/dL (65-100)
[2025-04-22] MEDS ORDERED: ACETAMINOPHEN WITH CODEINE 1 UDTAB TABLET PO STA (03:56)
== END 2025-04-22 05:02 | disposition home or self-care (01) ==
LOC: ER 19:57
PROVIDERS: General Practice
DX: M13.811 Other specified arthritis, right shoulder (principal); M13.0 Polyarthritis, unspecified; M54.2 Cervicalgia; I10 Essential (primary) hypertension; E11.9 Type 2 diabetes mellitus without complications; Z88.2 Allergy status to sulfonamides; Z87.09 Personal history of other diseases of the respiratory system
CPT/HCPCS: 36415; 71045; 73030; 96365; 96366; 99283; J1885; J3490; J7030

== ENCOUNTER 2025-05-06 13:30 | Inpatient (IN) | payer OTHER ==
[~2025-05-06] VITALS: Ht 167.6 cm; Wt 112.9 kg
[2025-05-06] MEDS ORDERED: 0.9 % SODIUM CHLORIDE 1,000 ML IV SCH ×2 (13:37→17:00)
[2025-05-06] MEDS ORDERED: INSULIN REGULAR, HUMAN 1,000 UNIT/10 ML UNITS IV ONE (13:45)
[2025-05-06 14:05] LABS: BASO % 0.2 % (0.1-1.2); EOS # 0.00 (0.04-0.54); EOS % 0.0 % (0.7-7.0); LYMPH # 1.18 (1.18-3.74); LYMPH % 7.1 % (19.3-53.1); MEAN PLATELET VOLUME 10.00 fl (9.4-12.4); MONO # 1.35 (0.24-0.82); MONO % 8.2 % (4.7-12.5); NEUT # 13.78 (1.56-6.13); NEUT % 83.2 % (34.0-71.1); RED CELL DISTRIBUTION WIDTH 13.2 % (11.6-14.4)
[2025-05-06] MEDS ORDERED: SODIUM BICARBONATE 1 MEQ/ML DISP.SYRIN 50ML IV ONE (14:15)
--- NOTE | 2025-05-06 14:18 | NUR ---
PTE UNBRESPONSIVE HIPERVENTILANDO, LLEGA EN AMBULANCIA DADO A QUE LA MISMA TIENE NIEVELES DE GLUCOSA POR ENCIMA DE LOS 600 MG/DL. SE PASA A AREA DE CRITICO EN DONDE SE CONECTA A MONITOR CARDIACO Y OXYMETRIA. SE COLOCA H/L EN MANO DERECHA. SE BEVERLY MUESTRAS DE LAB CONTRERAS ORDEN MEDICA.
[2025-05-06 14:32] LABS: ALT/SGPT 24.0 U/L (12-78); AST/SGOT 15.0 U/L (15-37); BILIRUBIN TOTAL 0.67 mg/dL (0.3-1.2); BUN CREA RATIO 18.0 (7.0-25.0); CREATININE SERUM 2.23 mg/dL (0.55-1.02); GFR 22.27; GLOBULINA 3.7 G/DL (2.4-3.5)
[2025-05-06 14:39] LABS: OSMOLALITY SERUM 316.0 MOSM/KG (275-295)
[2025-05-06 14:46] LABS: GLUCOSE FASTING 1013.0 mg/dL (65-100)
[2025-05-06 14:52] LABS: ABG PH 7.170 (7.35-7.45)
[2025-05-06 14:53] LABS: ABG PO2 125.1 mmHg (80-100)
[2025-05-06 14:54] LABS: BICARBONATE 5.6 mmol/l (23-25)
[2025-05-06 14:55] LABS: o2 32 %
[2025-05-06 15:06] LABS: URINE APPEARANCE Clear; URINE BILIRRUBIN Negative (NEGATIVE); URINE BLOOD Negative; URINE COLOR Yellow; URINE KETONE 15 (NEGATIVE); URINE LEUKOCYTE Negative; URINE NITRATE Negative; URINE UROBILINOGEN 0.2 E.U./dl
[2025-05-06 15:07] LABS: URINE BACTERIA 28.7 uL (0.0-1933); URINE CAST 1.61 uL (0.0-1.40); URINE EPITHELIAL CELLS 4.4 uL (0.0-38.8); URINE RBC 3.3 uL (0.0-20.8); URINE WBC 2.9 uL (0.0-23.2)
[2025-05-06 15:10] LABS: URINE GLUCOSE >=1000 MG/DL (NEGATIVE); URINE PROTEIN 100 (NEGATIVE)
--- NOTE | 2025-05-06 15:37 | NUR ---
SE LE SHAYY DEXTRO A PTE RESULTADO SOBRE 600 MG/DL SE LE NOTIFICA AL EL MISMO ORDENA ADMINISTRARLE 12 UNIDADES DE INSULINA HUMULIN R LA CUAL SE LE ADMINISTRA A LAS 3:30.
[2025-05-06] MEDS ORDERED: INSULIN REGULAR, HUMAN 100 UNITS in 0.9 % SODIUM CHLORIDE 100 ML IV SCH (15:45)
[2025-05-06] MEDS ORDERED: PIPERACILLIN/TAZOBACTAM SODIUM 3.375 GM VIAL IV ONE (16:15)
[2025-05-06 16:28] LABS: ABG PO2 102.2 mmHg (80-100); BICARBONATE 6.0 mmol/l (23-25)
[2025-05-06] MEDS ORDERED: 0.9 % SODIUM CHLORIDE 1,000 ML IV ONE ×3 (16:45→17:00)
[2025-05-06] MEDS ORDERED: CEFTRIAXONE SODIUM 2,000 MG in 0.9 % SODIUM CHLORIDE 100 ML IV SCH (17:01)
[2025-05-06] MEDS ORDERED: FAMOTIDINE/PF 20 MG in 0.9 % SODIUM CHLORIDE 8 ML IV PUSH SCH (17:01)
[2025-05-06] MEDS ORDERED: ONDANSETRON HCL 4 MG in 0.9 % SODIUM CHLORIDE 50 ML IV PRN (17:15)
[2025-05-06] MEDS ORDERED: ACETAMINOPHEN 500 MG GEL..CAP PO PRN (17:15)
[2025-05-06 17:59] LABS: ABG PH 7.119 (7.35-7.45)
[2025-05-06 18:00] LABS: o2 28 %
[2025-05-06] MEDS ORDERED: MIDAZOLAM HCL 2 MG/2 ML VIAL IV PUSH ONE (18:00)
[2025-05-06] MEDS ORDERED: PROPOFOL 10,000 MCG/ML VIAL IV ONE (18:00)
[2025-05-06] MEDS ORDERED: PIPERACILLIN/TAZOBACTAM SODIUM 2.25 GM in DEXTROSE 5 % IN WATER 50 ML IV SCH (18:00)
[2025-05-06] MEDS ORDERED: PROPOFOL 100 ML IV SCH (19:00)
[2025-05-06 19:14] LABS: BUN CREA RATIO 17.0 (7.0-25.0); CREATININE SERUM 2.33 mg/dL (0.55-1.02); GFR 21.17
[2025-05-06 19:15] LABS: OSMOLALITY SERUM 315.0 MOSM/KG (275-295)
[2025-05-06 19:30] LABS: GLUCOSE FASTING 632.0 mg/dL (65-100)
[2025-05-06 20:07] LABS: COVID-19 AG NEGATIVE (NEGATIVE)
[2025-05-06] MEDS ORDERED: PANTOPRAZOLE SODIUM 40 MG/VIAL VIAL IV SCH (21:00)
[2025-05-06 21:47] VITALS: BP 111/60
[2025-05-06 23:43] LABS: BUN CREA RATIO 17.0 (7.0-25.0); CREATININE SERUM 2.4 mg/dL (0.55-1.02); GFR 20.46
[2025-05-07] VITALS (18 sets, daily range): BP systolic 115–172; BP diastolic 52–84; O2SAT 98–100
[2025-05-07] LABS: GLUCOSE FASTING 640.0 mg/dL (65-100); OSMOLALITY SERUM 316.0 MOSM/KG (275-295)
[2025-05-07] MEDS ORDERED: INSULIN REGULAR, HUMAN 1,000 UNIT/10 ML UNITS ONE (05:20)
[2025-05-07 07:03] LABS: BUN CREA RATIO 18.0 (7.0-25.0); CREATININE SERUM 2.26 mg/dL (0.55-1.02); GFR 21.92; OSMOLALITY SERUM 299.0 MOSM/KG (275-295)
[2025-05-07 07:06] LABS: GLUCOSE FASTING 309.0 mg/dL (65-100)
[2025-05-07 08:35] LABS: ABG PH 7.420 (7.35-7.45); ABG PO2 161.5 mmHg (80-100); BICARBONATE 20.4 mmol/l (23-25)
[2025-05-07] MEDS ORDERED: ENOXAPARIN SODIUM 30 MG/0.3 ML SYRINGE SUBCUTANEO SCH (09:00)
[2025-05-07 09:18] LABS: o2 35 %
[2025-05-07 09:18] LABS: BASO % 0.2 % (0.1-1.2); EOS # 0.00 (0.04-0.54); EOS % 0.0 % (0.7-7.0); LYMPH # 0.94 (1.18-3.74); LYMPH % 4.5 % (19.3-53.1); MEAN PLATELET VOLUME 9.70 fl (9.4-12.4); MONO # 1.80 (0.24-0.82); MONO % 8.5 % (4.7-12.5); NEUT # 18.11 (1.56-6.13); NEUT % 85.9 % (34.0-71.1); RED CELL DISTRIBUTION WIDTH 12.8 % (11.6-14.4)
[2025-05-07 10:17] LABS: ALT/SGPT 29.0 U/L (12-78); AST/SGOT 74.0 U/L (15-37); BILIRUBIN TOTAL 0.4 mg/dL (0.3-1.2); BUN CREA RATIO 18.0 (7.0-25.0); CREATININE SERUM 2.14 mg/dL (0.55-1.02); GFR 23.35; GLOBULINA 3.0 G/DL (2.4-3.5); OSMOLALITY SERUM 300.0 MOSM/KG (275-295)
[2025-05-07] MEDS ORDERED: NITROGLYCERIN IN 5 % DEXTROSE 50 MG/250 ML BOTTLE IV ONE (10:19)
[2025-05-07 10:22] LABS: GLUCOSE FASTING 303.0 mg/dL (65-100)
[2025-05-07] MEDS ORDERED: ACETAMINOPHEN 650 MG SUPP.RECT RECTAL PRN (11:00)
[2025-05-07] MEDS ORDERED: NITROGLYCERIN IN 5 % DEXTROSE 50 MG/250 ML BOTTLE IV SCH (12:45)
[2025-05-07] MEDS ORDERED: NITROGLYCERIN IN 5 % DEXTROSE 250 ML IV SCH (12:45)
[2025-05-07] MEDS ORDERED: OSELTAMIVIR PHOSPHATE 30MG CAP PO SCH (13:13)
[2025-05-07 17:12] LABS: BUN CREA RATIO 17.0 (7.0-25.0); CREATININE SERUM 2.05 mg/dL (0.55-1.02); GFR 24.54; GLUCOSE FASTING 151.0 mg/dL (65-100); OSMOLALITY SERUM 299.0 MOSM/KG (275-295)
[2025-05-08] VITALS (20 sets, daily range): BP systolic 149–181; BP diastolic 57–82; O2SAT 98–100
[2025-05-08] MEDS ORDERED: INSULIN LISPRO 1,000 UNIT/10 ML UNITS SUBCUTANEO PRN (03:45)
[2025-05-08] MEDS ORDERED: DEXTROSE 50 % IN WATER 0.5 G/ML VIAL IV PRN (03:45)
[2025-05-08 07:01] LABS: BUN CREA RATIO 15.0 (7.0-25.0); CREATININE SERUM 1.7 mg/dL (0.55-1.02); GFR 30.45; OSMOLALITY SERUM 303.0 MOSM/KG (275-295)
[2025-05-08 07:05] LABS: GLUCOSE FASTING 240.0 mg/dL (65-100)
[2025-05-08] MEDS ORDERED: CEFTRIAXONE SODIUM 2,000 MG VIAL ONE (08:52)
[2025-05-08] MEDS ORDERED: CEFTRIAXONE SODIUM 2,000 MG VIAL IV SCH (09:00)
[2025-05-08] MEDS ORDERED: ENOXAPARIN SODIUM 100 MG/ML SYRINGE SUBCUTANEO SCH ×2 (09:00→21:00)
[2025-05-08 09:03] LABS: ABG PH 7.383 (7.35-7.45); ABG PO2 141.5 mmHg (80-100); BICARBONATE 20.1 mmol/l (23-25)
[2025-05-08 09:04] LABS: o2 35 %
[2025-05-08] MEDS ORDERED: INSULIN LISPRO 1,000 UNIT/10 ML UNITS SUBCUTANEO ONE (09:25)
[2025-05-08 09:53] LABS: BASO % 0.1 % (0.1-1.2); EOS # 0.00 (0.04-0.54); EOS % 0.0 % (0.7-7.0); LYMPH # 0.40 (1.18-3.74); LYMPH % 2.5 % (19.3-53.1); MEAN PLATELET VOLUME 9.40 fl (9.4-12.4); MONO # 1.01 (0.24-0.82); MONO % 6.2 % (4.7-12.5); NEUT # 14.21 (1.56-6.13); NEUT % 87.6 % (34.0-71.1); RED CELL DISTRIBUTION WIDTH 13.5 % (11.6-14.4)
[2025-05-08 10:15] LABS: INR 1.03
[2025-05-08 10:42] LABS: ALT/SGPT 31.0 U/L (12-78); AST/SGOT 77.0 U/L (15-37); BILIRUBIN TOTAL 0.57 mg/dL (0.3-1.2); BUN CREA RATIO 18.0 (7.0-25.0); CREATININE SERUM 1.54 mg/dL (0.55-1.02); GFR 34.13; GLOBULINA 3.3 G/DL (2.4-3.5); OSMOLALITY SERUM 308.0 MOSM/KG (275-295)
[2025-05-08 10:46] LABS: GLUCOSE FASTING 346.0 mg/dL (65-100)
[2025-05-08] MEDS ORDERED: INSULIN NPH HUMAN ISOPHANE 1,000 UNITS/10 ML UNITS SUBCUTANEO STA (11:33)
[2025-05-08] MEDS ORDERED: INSULIN REGULAR, HUMAN 1,000 UNIT/10 ML UNITS IV STA (11:38)
[2025-05-08] MEDS ORDERED: METOPROLOL TARTRATE 25 MG TABLET PO NR (14:00)
[2025-05-08] MEDS ORDERED: INSULIN NPH HUMAN ISOPHANE 1,000 UNITS/10 ML UNITS SUBCUTANEO SCH (21:00)
[2025-05-09] VITALS (20 sets, daily range): BP systolic 136–189; BP diastolic 62–88; O2SAT 99–100
[2025-05-09 07:28] LABS: BASO % 0.1 % (0.1-1.2); EOS # 0.00 (0.04-0.54); EOS % 0.0 % (0.7-7.0); LYMPH # 0.68 (1.18-3.74); LYMPH % 6.5 % (19.3-53.1); MEAN PLATELET VOLUME 10.30 fl (9.4-12.4); MONO # 0.82 (0.24-0.82); MONO % 7.9 % (4.7-12.5); NEUT # 8.79 (1.56-6.13); NEUT % 84.4 % (34.0-71.1); RED CELL DISTRIBUTION WIDTH 13.6 % (11.6-14.4)
[2025-05-09 07:40] LABS: BUN CREA RATIO 17.0 (7.0-25.0); CREATININE SERUM 1.1 mg/dL (0.55-1.02); GFR 50.33; GLUCOSE FASTING 151.0 mg/dL (65-100)
[2025-05-09 07:44] LABS: OSMOLALITY SERUM 303.0 MOSM/KG (275-295)
[2025-05-09] MEDS ORDERED: POTASSIUM CHLORIDE IN WATER 40 MEQ/100 ML PIGGYBAG IV SCH (08:00)
[2025-05-09] MEDS ORDERED: SODIUM CHLORIDE 0.45 % 1,000 ML IV SCH (08:00)
[2025-05-09] MEDS ORDERED: POTASSIUM CHLORIDE IN WATER 40 MEQ/100 ML PIGGYBAG IV ONE (08:28)
[2025-05-09] MEDS ORDERED: LOSARTAN POTASSIUM 25 MG TABLET PO SCH (09:00)
[2025-05-09] MEDS ORDERED: METOPROLOL TARTRATE 25 MG TABLET PO SCH ×2 (09:00)
[2025-05-09 09:52] LABS: ABG PH 7.473 (7.35-7.45); ABG PO2 158.3 mmHg (80-100); BICARBONATE 23.5 mmol/l (23-25)
[2025-05-09 09:53] LABS: o2 35 %
[2025-05-09] MEDS ORDERED: IPRATROPIUM BROMIDE 0.5 MG/2.5 ML AMPUL.NEB IH ONE ×2 (10:40→11:00)
[2025-05-09] MEDS ORDERED: RACEPINEPHRINE HCL 0.5 ML AMPUL IH ONE ×2 (10:41→10:50)
[2025-05-09 11:09] LABS: ABG PH 7.432 (7.35-7.45); ABG PO2 158.7 mmHg (80-100); BICARBONATE 22.2 mmol/l (23-25)
[2025-05-09 11:11] LABS: o2 35 %
[2025-05-09] MEDS ORDERED: OSELTAMIVIR PHOSPHATE 75 MG CAPSULE PO SCH (17:00)
[2025-05-10] VITALS (22 sets, daily range): BP systolic 145–183; BP diastolic 49–89; O2SAT 96–100
[2025-05-10] MEDS ORDERED: hydrALAZINE HCL 20 MG VIAL ONE (02:38)
[2025-05-10] MEDS ORDERED: hydrALAZINE HCL 20 MG VIAL IV ONE (02:45)
[2025-05-10] MEDS ORDERED: ACETAMINOPHEN 500 MG GEL..CAP PO PRN (02:45)
[2025-05-10 04:02] LABS: BASO % 0.1 % (0.1-1.2); EOS # 0.01 (0.04-0.54); EOS % 0.1 % (0.7-7.0); LYMPH # 1.14 (1.18-3.74); LYMPH % 12.2 % (19.3-53.1); MEAN PLATELET VOLUME 10.20 fl (9.4-12.4); MONO # 0.65 (0.24-0.82); MONO % 6.9 % (4.7-12.5); NEUT # 7.53 (1.56-6.13); NEUT % 80.3 % (34.0-71.1); RED CELL DISTRIBUTION WIDTH 13.2 % (11.6-14.4)
[2025-05-10] MEDS ORDERED: NIFEDIPINE 30 MG TAB.SA.OSM PO SCH (09:49)
[2025-05-10] MEDS ORDERED: ONDANSETRON HCL 2 MG/ML VIAL ONE (11:43)
[2025-05-10 12:47] LABS: BUN CREA RATIO 17.0 (7.0-25.0); CREATININE SERUM 0.88 mg/dL (0.55-1.02); GFR 65.11; GLUCOSE FASTING 166.0 mg/dL (65-100); OSMOLALITY SERUM 293.0 MOSM/KG (275-295)
[2025-05-10] MEDS ORDERED: METOCLOPRAMIDE HCL 5 MG/ML VIAL ONE (20:19)
[2025-05-10] MEDS ORDERED: METOCLOPRAMIDE HCL 5 MG/ML VIAL IV PRN (20:30)
[2025-05-11] VITALS (19 sets, daily range): BP systolic 133–172; BP diastolic 58–90; O2SAT 95–100
[2025-05-11] MEDS ORDERED: LOSARTAN POTASSIUM 50 MG TABLET PO SCH (09:00)
[2025-05-11] MEDS ORDERED: LOSARTAN POTASSIUM 100 MG TABLET PO SCH (09:00)
[2025-05-11] MEDS ORDERED: POTASSIUM CHLORIDE 10 MEQ CAPSULE PO NR (09:45)
[2025-05-11] MEDS ORDERED: CHLORHEXIDINE GLUCONATE 120 ML BOTTLE TOP ONE (11:04)
[2025-05-11] MEDS ORDERED: SUCRALFATE 1 G TABLET ONE (21:08)
[2025-05-11] MEDS ORDERED: SUCRALFATE 1 G TABLET PO SCH (21:12)
[2025-05-11] MEDS ORDERED: ONDANSETRON HCL 4 MG in 0.9 % SODIUM CHLORIDE 50 ML IV PRN (21:15)
[2025-05-11] MEDS ORDERED: DEXTROSE 5 %-0.45 % SOD CHLORD 1,000 ML IV SCH (21:15)
[2025-05-11] MEDS ORDERED: hydrALAZINE HCL 20 MG VIAL ONE (22:39)
[2025-05-11] MEDS ORDERED: hydrALAZINE HCL 20 MG VIAL IV PRN (22:45)
[2025-05-12 04:03] VITALS: BP 171/59; O2SAT 98
[2025-05-12] MEDS ORDERED: hydrALAZINE HCL 20 MG VIAL ONE (05:13)
[2025-05-12 07:01] VITALS: O2SAT 93
[2025-05-12] MEDS ORDERED: INSULIN NPH HUMAN ISOPHANE 1,000 UNITS/10 ML UNITS SUBCUTANEO SCH (09:00)
[2025-05-12] MEDS ORDERED: PANTOPRAZOLE SODIUM 40 MG/VIAL VIAL IV SCH (09:00)
[2025-05-12] MEDS ORDERED: hydrALAZINE HCL 50 MG,hydrALAZINE HCL 25 MG PO SCH (10:22)
[2025-05-12 13:28] VITALS: BP 152/74; O2SAT 100
[2025-05-12 14:50] VITALS: BP 196/73; O2SAT 94
[2025-05-12 16:40] VITALS: BP 166/76
[2025-05-12] MEDS ORDERED: SODIUM CL 0.9% 50 ML IV.SOLN IV ONE (20:30)
[2025-05-13 00:57] VITALS: BP 168/72; O2SAT 97
[2025-05-13 07:59] LABS: BASO % 0.6 % (0.1-1.2); EOS # 0.09 (0.04-0.54); EOS % 1.7 % (0.7-7.0); LYMPH # 0.95 (1.18-3.74); LYMPH % 17.8 % (19.3-53.1); MEAN PLATELET VOLUME 10.90 fl (9.4-12.4); MONO # 0.84 (0.24-0.82); NEUT # 3.36 (1.56-6.13); NEUT % 63.0 % (34.0-71.1); RED CELL DISTRIBUTION WIDTH 13.2 % (11.6-14.4)
[2025-05-13 08:04] LABS: MONO % 15.8 % (4.7-12.5)
[2025-05-13 08:16] VITALS: BP 168/66; O2SAT 95
[2025-05-13 08:36] LABS: BUN CREA RATIO 15.0 (7.0-25.0); CREATININE SERUM 0.98 mg/dL (0.55-1.02); GFR 57.5; OSMOLALITY SERUM 285.0 MOSM/KG (275-295)
[2025-05-13 08:37] LABS: GLUCOSE FASTING 243.0 mg/dL (65-100)
[2025-05-13] MEDS ORDERED: METOPROLOL SUCCINATE 25 MG TAB.SR.24H PO NR (11:00)
[2025-05-13] MEDS ORDERED: POTASSIUM CHLORIDE IN WATER 100 ML IV SCH (12:00)
[2025-05-13 17:50] VITALS: BP 144/57
[2025-05-13] MEDS ORDERED: INSULIN NPH HUMAN ISOPHANE 1,000 UNITS/10 ML UNITS SUBCUTANEO SCH (21:00)
[2025-05-14 00:29] VITALS: BP 172/72; O2SAT 96
[2025-05-14 08:33] VITALS: BP 160/70; O2SAT 96
[2025-05-14] MEDS ORDERED: METOPROLOL SUCCINATE 25 MG TAB.SR.24H PO SCH (09:00)
[2025-05-14] MEDS ORDERED: POTASSIUM CHLORIDE 20MEQ/100ML H2O PB IV NR (12:15)
[2025-05-14 17:34] VITALS: BP 195/70; O2SAT 97
[2025-05-14 17:58] VITALS: BP 160/55; O2SAT 96
[2025-05-15 02:12] VITALS: BP 156/73; O2SAT 96
[2025-05-15 06:45] LABS: BUN CREA RATIO 9.0 (7.0-25.0); CREATININE SERUM 0.85 mg/dL (0.55-1.02); GFR 67.77; GLUCOSE FASTING 188.0 mg/dL (65-100); OSMOLALITY SERUM 283.0 MOSM/KG (275-295)
[2025-05-15 08:11] VITALS: BP 160/70; O2SAT 98
[2025-05-15 17:05] VITALS: BP 164/62; O2SAT 97
== END 2025-05-15 17:13 | disposition home or self-care (01) | DRG 871 ==
LOC: ER 13:30 → ICU-2 17:34 → ICU 05-08 11:25 → MEDJ 05-12 12:18 → ICU 05-12 12:25 → MEDJ 05-12 14:46
PROVIDERS: Emergency Medicine; General Practice; Internal Medicine; ADMIT Internal Medicine; ATTEND Internal Medicine
PROC: BW21ZZZ Computerized Tomography (CT Scan) of Abdomen and Pelvis (ICD-10-PCS; principal; 2025-05-06)
PROC: BB24ZZZ Computerized Tomography (CT Scan) of Bilateral Lungs (ICD-10-PCS; 2025-05-06)
PROC: 5A1945Z Respiratory Ventilation, 24-96 Consecutive Hours (ICD-10-PCS; 2025-05-06)
PROC: B246ZZZ Ultrasonography of Right and Left Heart (ICD-10-PCS; 2025-05-07)
PROC: 02HV33Z Insertion of Infusion Device into Superior Vena Cava, Percutaneous Approach (ICD-10-PCS; 2025-05-08)
PROC: 5A0935A Assistance with Respiratory Ventilation, Less than 24 Consecutive Hours, High Flow/Velocity Cannula (ICD-10-PCS; 2025-05-09)
PROC: 30233N1 Transfusion of Nonautologous Red Blood Cells into Peripheral Vein, Percutaneous Approach (ICD-10-PCS; 2025-05-09)
DX: A41.9 Sepsis, unspecified organism (principal); E11.10 Type 2 diabetes mellitus with ketoacidosis without coma; J96.90 Respiratory failure, unspecified, unspecified whether with hypoxia or hypercapnia; I21.4 Non-ST elevation (NSTEMI) myocardial infarction; N17.8 Other acute kidney failure; L97.528 Non-pressure chronic ulcer of other part of left foot with other specified severity; L97.518 Non-pressure chronic ulcer of other part of right foot with other specified severity; J44.1 Chronic obstructive pulmonary disease with (acute) exacerbation; E66.01 Morbid (severe) obesity due to excess calories; I10 Essential (primary) hypertension; E86.0 Dehydration; J10.1 Influenza due to other identified influenza virus with other respiratory manifestations; D64.9 Anemia, unspecified; Z87.891 Personal history of nicotine dependence; R65.10 Systemic inflammatory response syndrome (SIRS) of non-infectious origin without acute organ dysfunction; Z79.4 Long term (current) use of insulin

== ENCOUNTER 2025-05-21 00:43 | Inpatient (IN) | payer OTHER ==
[~2025-05-21] VITALS: Ht 152.4 cm; Wt 120.2 kg
[2025-05-21] MEDS ORDERED: PROMETHAZINE HCL 50 MG/ML AMPUL IM STA (01:29)
[2025-05-21] MEDS ORDERED: FAMOTIDINE/PF 20 MG/2 ML VIAL IV PUSH STA (01:30)
[2025-05-21] MEDS ORDERED: LEVALBUTEROL HCL 0.63 MG/3 ML SOLUTION IH STA (01:31)
[2025-05-21] MEDS ORDERED: PROMETHAZINE HCL 50 MG/ML AMPUL IM ONE (01:33)
[2025-05-21] MEDS ORDERED: INSULIN REGULAR, HUMAN 1,000 UNIT/10 ML UNITS IV STA (01:33)
[2025-05-21] MEDS ORDERED: FAMOTIDINE/PF 20 MG/2 ML VIAL ONE (01:35)
[2025-05-21] MEDS ORDERED: 0.9 % SODIUM CHLORIDE 500 ML IV ONE (01:45)
[2025-05-21 02:08] LABS: ABG PH 7.442 (7.35-7.45); ABG PO2 62.7 mmHg (80-100); BICARBONATE 20.4 mmol/l (23-25); o2 21 %
[2025-05-21 02:38] LABS: BASO % 0.7 % (0.1-1.2); EOS # 0.02 (0.04-0.54); EOS % 0.4 % (0.7-7.0); LYMPH # 0.67 (1.18-3.74); LYMPH % 12.3 % (19.3-53.1); MEAN PLATELET VOLUME 9.50 fl (9.4-12.4); MONO # 0.55 (0.24-0.82); MONO % 10.1 % (4.7-12.5); NEUT # 4.14 (1.56-6.13); NEUT % 75.9 % (34.0-71.1); RED CELL DISTRIBUTION WIDTH 13.4 % (11.6-14.4)
[2025-05-21 02:47] LABS: INR 1.03
[2025-05-21 02:51] LABS: ALT/SGPT 19.0 U/L (12-78); AST/SGOT 14.0 U/L (15-37); BILIRUBIN TOTAL 0.48 mg/dL (0.3-1.2); BUN CREA RATIO 11.0 (7.0-25.0); CREATININE SERUM 1.03 mg/dL (0.55-1.02); GFR 54.3; GLOBULINA 4.0 G/DL (2.4-3.5); OSMOLALITY SERUM 284.0 MOSM/KG (275-295)
[2025-05-21 02:52] LABS: GLUCOSE FASTING 253.0 mg/dL (65-100)
[2025-05-21 03:30] LABS: URINE APPEARANCE Cloudy; URINE BILIRRUBIN Negative (NEGATIVE); URINE BLOOD Small; URINE COLOR Yellow; URINE LEUKOCYTE Negative; URINE NITRATE Negative; URINE UROBILINOGEN 0.2 E.U./dl
[2025-05-21 03:31] LABS: URINE BACTERIA 63.5 uL (0.0-1933); URINE CAST 5.86 uL (0.0-1.40); URINE EPITHELIAL CELLS 4.1 uL (0.0-38.8); URINE RBC 2851.7 uL (0.0-20.8); URINE WBC 117.3 uL (0.0-23.2)
[2025-05-21 03:55] LABS: URINE GLUCOSE >=1000 MG/DL (NEGATIVE); URINE KETONE >=160 (NEGATIVE); URINE PROTEIN 300 (NEGATIVE); URINE YEAST MANY /hpf
[2025-05-21] MEDS ORDERED: CEFTRIAXONE SODIUM 1,000 MG VIAL IV STA (06:24)
[2025-05-21] MEDS ORDERED: KETOROLAC TROMETHAMINE 30 MG VIAL IM STA (06:24)
[2025-05-21] MEDS ORDERED: KETOROLAC TROMETHAMINE 30 MG VIAL ONE (06:25)
[2025-05-21] MEDS ORDERED: CEFTRIAXONE SODIUM 1,000 MG VIAL ONE (06:26)
[2025-05-21] MEDS ORDERED: LEVALBUTEROL HCL 0.63 MG/3 ML SOLUTION IH ONE (06:46)
[2025-05-21] MEDS ORDERED: LEVALBUTEROL HCL 0.63 MG/3 ML SOLUTION IH SCH ×2 (06:46→08:00)
[2025-05-21] MEDS ORDERED: INSULIN LISPRO 1,000 UNIT/10 ML UNITS SUBCUTANEO PRN ×2 (13:00→16:45)
[2025-05-21] MEDS ORDERED: PANTOPRAZOLE SODIUM 40 MG/VIAL VIAL IV SCH (15:11)
[2025-05-21] MEDS ORDERED: DEXTROSE 50 % IN WATER 0.5 G/ML VIAL IV PRN (16:45)
[2025-05-21] MEDS ORDERED: NITROGLYCERIN IN 5 % DEXTROSE 250 ML IV SCH ×2 (16:45→19:15)
[2025-05-21] MEDS ORDERED: ACETAMINOPHEN 500 MG GEL..CAP PO PRN (16:45)
[2025-05-21] MEDS ORDERED: IPRATROPIUM BROMIDE 0.5 MG/2.5 ML AMPUL.NEB IH SCH (17:00)
[2025-05-21] MEDS ORDERED: NITROGLYCERIN IN 5 % DEXTROSE 50 MG/250 ML BOTTLE IV ONE (17:42)
[2025-05-21] MEDS ORDERED: IPRATROPIUM BROMIDE 0.5 MG/2.5 ML AMPUL.NEB IH ONE (18:28)
[2025-05-21] MEDS ORDERED: SPIRONOLACTONE 50 MG TABLET PO SCH (20:14)
[2025-05-21] MEDS ORDERED: POTASSIUM CHLORIDE 10 MEQ CAPSULE PO SCH (20:15)
[2025-05-21] MEDS ORDERED: POTASSIUM CHLORIDE IN WATER 100 ML IV ONE (20:15)
[2025-05-21] MEDS ORDERED: NIFEDIPINE 30 MG TAB.SA.OSM PO SCH (20:16)
[2025-05-21 20:38] VITALS: BP 180/63
[2025-05-21 20:52] VITALS: BP 180/63; O2SAT 100
[2025-05-21 23:54] VITALS: BP 196/82; O2SAT 99
[2025-05-22] VITALS (12 sets, daily range): BP systolic 122–181; BP diastolic 52–77; O2SAT 96–100
[2025-05-22] MEDS ORDERED: INSULIN LISPRO 1,000 UNIT/10 ML UNITS SUBCUTANEO ONE ×3 (00:48→12:20)
[2025-05-22 07:14] LABS: BUN CREA RATIO 10.0 (7.0-25.0); CREATININE SERUM 1.04 mg/dL (0.55-1.02); GFR 53.69; OSMOLALITY SERUM 288.0 MOSM/KG (275-295)
[2025-05-22 07:16] LABS: GLUCOSE FASTING 246.0 mg/dL (65-100)
[2025-05-22] MEDS ORDERED: ENOXAPARIN SODIUM 40 MG/0.4 ML SYRINGE SUBCUTANEO SCH (09:00)
[2025-05-22] MEDS ORDERED: LOSARTAN POTASSIUM 25 MG TABLET PO SCH (09:00)
[2025-05-22] MEDS ORDERED: FAMOTIDINE/PF 20 MG in 0.9 % SODIUM CHLORIDE 8 ML IV PUSH SCH (09:00)
[2025-05-22] MEDS ORDERED: PANTOPRAZOLE SODIUM 40 MG TABLET.DR PO SCH (10:01)
[2025-05-22] MEDS ORDERED: FLUCONAZOLE IN NACL,ISO-OSM 50 ML IV SCH (10:57)
[2025-05-22] MEDS ORDERED: PATIENTS OWN MEDICATION (MEDICAMENTO EN PISO) PO SCH ×2 (11:05)
[2025-05-22] MEDS ORDERED: INSULIN GLARGINE,HUM.REC.ANLOG 1,000 UNITS/10 ML UNITS SUBCUTANEO SCH (11:06)
[2025-05-22] MEDS ORDERED: INSULIN GLARGINE,HUM.REC.ANLOG 1,000 UNITS/10 ML UNITS SUBCUTANEO ONE (11:37)
[2025-05-22] MEDS ORDERED: INSULIN LISPRO 1,000 UNIT/10 ML UNITS SUBCUTANEO SCH ×2 (13:00)
[2025-05-22] MEDS ORDERED: FLUCONAZOLE IN NACL,ISO-OSM 2 MG/ML ML IV SCH (17:00)
[2025-05-23 04:24] VITALS: BP 160/67; O2SAT 96
[2025-05-23] MEDS ORDERED: NIFEDIPINE 30 MG TAB.SA.OSM PO SCH (09:00)
[2025-05-23] MEDS ORDERED: LOSARTAN POTASSIUM 50 MG TABLET PO SCH ×2 (09:00)
[2025-05-23 09:55] VITALS: BP 160/62; O2SAT 97
[2025-05-23] MEDS ORDERED: AMINO ACIDS/PROTEIN HYDROLYS 30 ML BLIST.PACK PO SCH (17:00)
[2025-05-23 18:08] VITALS: BP 183/75
[2025-05-24 02:02] VITALS: BP 170/84; O2SAT 96
[2025-05-24 09:31] VITALS: BP 178/79
[2025-05-24 18:07] VITALS: BP 160/73; O2SAT 97
[2025-05-25 01:51] VITALS: BP 158/75; O2SAT 96
[2025-05-25 07:58] VITALS: BP 180/78
[2025-05-25 18:14] VITALS: BP 160/66; O2SAT 97
[2025-05-25 18:15] VITALS: BP 144/75; O2SAT 96
[2025-05-26 01:59] VITALS: BP 151/79; O2SAT 98
[2025-05-26 08:00] VITALS: BP 160/65
[2025-05-26] MEDS ORDERED: KETOROLAC TROMETHAMINE 30 MG VIAL IV SCH (13:00)
[2025-05-26] MEDS ORDERED: NIFEDIPINE 60 MG TAB.SA.OSM PO SCH (17:00)
[2025-05-26 18:39] VITALS: BP 137/82
[2025-05-27 01:58] VITALS: BP 156/70; O2SAT 97
[2025-05-27 03:26] LABS: BUN CREA RATIO 13.0 (7.0-25.0); CREATININE SERUM 1.24 mg/dL (0.55-1.02); GFR 43.83; GLUCOSE FASTING 140.0 mg/dL (65-100); OSMOLALITY SERUM 287.0 MOSM/KG (275-295)
[2025-05-27 03:48] LABS: BASO % 0.8 % (0.1-1.2); EOS # 0.16 (0.04-0.54); EOS % 3.2 % (0.7-7.0); LYMPH # 1.30 (1.18-3.74); LYMPH % 25.6 % (19.3-53.1); MEAN PLATELET VOLUME 10.40 fl (9.4-12.4); MONO # 0.61 (0.24-0.82); MONO % 12.0 % (4.7-12.5); NEUT # 2.94 (1.56-6.13); NEUT % 58.0 % (34.0-71.1); RED CELL DISTRIBUTION WIDTH 13.8 % (11.6-14.4)
[2025-05-27 08:14] VITALS: BP 150/73; O2SAT 93
[2025-05-27 16:05] VITALS: BP 154/65; O2SAT 92
[2025-05-28 02:54] VITALS: BP 154/73; O2SAT 91
== END 2025-05-28 07:51 | DRG 292 ==
LOC: ER 00:43 → ICU-2 16:45 → SEC-K 05-22 10:27 → MEDJ 05-22 12:00
PROVIDERS: General Practice; ADMIT Internal Medicine; ATTEND Internal Medicine
PROC: B24BYZZ Ultrasonography of Heart with Aorta using Other Contrast (ICD-10-PCS; principal; 2025-05-21)
DX: I50.9 Heart failure, unspecified (principal); N17.9 Acute kidney failure, unspecified; E87.6 Hypokalemia

== ENCOUNTER 2025-07-07 16:15 | Emergency (ER) | payer OTHER ==
[~2025-07-07] VITALS: Ht 170.2 cm; Wt 111.1 kg
[2025-07-07] MEDS ORDERED: 0.9 % SODIUM CHLORIDE 1,000 ML IV SCH (17:45)
[2025-07-07] MEDS ORDERED: VANCOMYCIN HCL 1,000 MG VIAL IV ONE (17:45)
[2025-07-07] MEDS ORDERED: PIPERACILLIN/TAZOBACTAM SODIUM 3.375 GM VIAL IV ONE (17:45)
[2025-07-07] MEDS ORDERED: FAMOTIDINE/PF 20 MG/2 ML VIAL IV ONE (17:45)
[2025-07-07 19:38] LABS: BASO % 1.2 % (0.1-1.2); EOS # 0.14 (0.04-0.54); EOS % 2.4 % (0.7-7.0); LYMPH # 1.74 (1.18-3.74); LYMPH % 30.1 % (19.3-53.1); MEAN PLATELET VOLUME 9.50 fl (9.4-12.4); MONO # 0.47 (0.24-0.82); MONO % 8.1 % (4.7-12.5); NEUT # 3.35 (1.56-6.13); NEUT % 57.9 % (34.0-71.1); RED CELL DISTRIBUTION WIDTH 15.4 % (11.6-14.4)
[2025-07-07 19:47] LABS: ERYTHROCYTE SEDIMENTATION RATE 75 mm/hr (0-30)
[2025-07-07 20:12] LABS: ALT/SGPT 30.0 U/L (12-78); AST/SGOT 22.0 U/L (15-37); BILIRUBIN TOTAL 0.24 mg/dL (0.3-1.2); BUN CREA RATIO 22.0 (7.0-25.0); CREATININE SERUM 1.57 mg/dL (0.55-1.02); GFR 33.38; GLOBULINA 4.3 G/DL (2.4-3.5)
[2025-07-07 20:14] LABS: GLUCOSE FASTING 335.0 mg/dL (65-100); OSMOLALITY SERUM 301.0 MOSM/KG (275-295)
[2025-07-08] MEDS ORDERED: PEPCID AC20 MG PO (00:17)
[2025-07-08] MEDS ORDERED: AMOX-CLAV 875-1 EACH PO (00:17)
[2025-07-08] MEDS ORDERED: KETOROLAC TROMETHAMINE 30 MG VIAL IV ONE (02:00)
== END 2025-07-08 02:34 | disposition home or self-care (01) ==
LOC: ER 16:15
PROVIDERS: Student in an Organized Health Care Education/Training Program
DX: L97.929 Non-pressure chronic ulcer of unspecified part of left lower leg with unspecified severity (principal); E11.9 Type 2 diabetes mellitus without complications; L03.90 Cellulitis, unspecified; I10 Essential (primary) hypertension; Z88.8 Allergy status to other drugs, medicaments and biological substances
CPT/HCPCS: 36415; 73551; 96365; 96366; 99283; J1885; J2543; J3490 ×2; J7030

== ENCOUNTER 2025-07-13 03:39 | Inpatient (IN) | payer OTHER ==
[~2025-07-13] VITALS: Ht 149.9 cm; Wt 112.9 kg
[~2025-07-13 03:39] MED LIST changes: +AMOX-CLAV 875-1 EACH PO; +PEPCID AC20 MG PO
--- NOTE | 2025-07-13 03:48 | NUR ---
PACIENTE ALERTA Y ORIENTADA X3 QUIEN REFIERE QUE LLEVA EN ANTIBIOTICOS POR YESICA CELULITIS EN EL GLUTEO GIBRAN Y QUE LA MISMA NO MELGAR JOYA. SE MONITOREAN S/V Y SE UBICA PACIENTE.
[2025-07-13] MEDS ORDERED: PIPERACILLIN/TAZOBACTAM SODIUM 2.25 GM VIAL IV STA (03:51)
[2025-07-13] MEDS ORDERED: VANCOMYCIN HCL 5 MG/ML REDILUIDO IV STA (03:53)
[2025-07-13] MEDS ORDERED: PROMETHAZINE HCL 50 MG/ML AMPUL IM STA (03:54)
[2025-07-13] MEDS ORDERED: VANCOMYCIN HCL 1,000 MG VIAL ONE (04:04)
[2025-07-13] MEDS ORDERED: PIPERACILLIN/TAZOBACTAM SODIUM 3.375 GM VIAL IV ONE ×2 (04:04→04:30)
[2025-07-13] MEDS ORDERED: PROMETHAZINE HCL 50 MG/ML AMPUL IM ONE (04:06)
--- NOTE | 2025-07-13 04:40 | NUR ---
RN PALAFOX EDUCA ACERCA DE TX ORDENADO Y REFIERE ENTENDER. CANALIZA Y COLECTA MUESTRAS DE LABORATORIO MEDIANTE MEDIDAS ASEPTICAS. ADMINSITRA MEDICAMENTOS CONTRERAS ORDEN MEDICA.
[2025-07-13 05:03] LABS: BASO % 0.6 % (0.1-1.2); EOS # 0.16 (0.04-0.54); EOS % 2.2 % (0.7-7.0); LYMPH # 1.50 (1.18-3.74); LYMPH % 21.0 % (19.3-53.1); MEAN PLATELET VOLUME 9.60 fl (9.4-12.4); MONO # 0.58 (0.24-0.82); MONO % 8.1 % (4.7-12.5); NEUT # 4.85 (1.56-6.13); NEUT % 67.8 % (34.0-71.1); RED CELL DISTRIBUTION WIDTH 15.1 % (11.6-14.4)
[2025-07-13 05:21] LABS: BUN CREA RATIO 21.0 (7.0-25.0); CREATININE SERUM 1.59 mg/dL (0.55-1.02); GFR 32.9; GLUCOSE FASTING 157.0 mg/dL (65-100); OSMOLALITY SERUM 294.0 MOSM/KG (275-295)
--- NOTE | 2025-07-13 06:00 | NUR ---
RN PALAFOX EDUCA ACERCA DE TX Y RFEFIERE ENTENDER. COLECTA MUESTARS DE LABORATORIO MEDIANTE MEDIDAS ASEPTICAS. ADMINISTRA MEDIAMENTO PO E INTRAMUSCULAR.
--- NOTE | 2025-07-13 06:01 | NUR ---
SE INTENTA CANALIZAR EN VARIAS OCASIONES SIN EXITO ALGUNO
[2025-07-13] MEDS ORDERED: 0.9 % SODIUM CHLORIDE 1,000 ML IV SCH ×2 (07:30→17:15)
[2025-07-13 09:16] LABS: URINE APPEARANCE Clear; URINE BILIRRUBIN Negative (NEGATIVE); URINE BLOOD Negative; URINE COLOR Yellow; URINE KETONE Negative (NEGATIVE); URINE LEUKOCYTE Negative; URINE NITRATE Negative; URINE UROBILINOGEN 0.2 E.U./dl
[2025-07-13 09:20] LABS: URINE BACTERIA 148.7 uL (0.0-1933); URINE EPITHELIAL CELLS 5.2 uL (0.0-38.8); URINE RBC 33.4 uL (0.0-20.8); URINE WBC 3.0 uL (0.0-23.2)
[2025-07-13 09:38] LABS: URINE CAST 0.73 uL (0.0-1.40); URINE GLUCOSE >=1000 MG/DL (NEGATIVE); URINE PROTEIN 100 (NEGATIVE)
[2025-07-13] MEDS ORDERED: DEXTROSE 50 % IN WATER 0.5 G/ML DISP.SYRIN IV PRN (17:00)
[2025-07-13] MEDS ORDERED: INSULIN LISPRO 1,000 UNIT/10 ML UNITS SUBCUTANEO PRN (17:00)
[2025-07-13] MEDS ORDERED: FAMOTIDINE/PF 20 MG in 0.9 % SODIUM CHLORIDE 8 ML IV PUSH SCH (17:01)
[2025-07-13] MEDS ORDERED: ENOXAPARIN SODIUM 30 MG/0.3 ML SYRINGE SUBCUTANEO SCH (17:02)
[2025-07-13] MEDS ORDERED: CEFTRIAXONE SODIUM 2,000 MG in 0.9 % SODIUM CHLORIDE 100 ML IV SCH (17:03)
[2025-07-13] MEDS ORDERED: VANCOMYCIN HCL 1,000 MG VIAL IV SCH (17:04)
[2025-07-13] MEDS ORDERED: ONDANSETRON HCL 4 MG in 0.9 % SODIUM CHLORIDE 50 ML IV PRN (17:15)
[2025-07-13] MEDS ORDERED: ACETAMINOPHEN 325 MG TABLET PO PRN (17:15)
[2025-07-13] MEDS ORDERED: NIFEDIPINE 90 MG TAB.SA.OSM PO SCH (17:19)
[2025-07-13] MEDS ORDERED: LOSARTAN POTASSIUM 25 MG TABLET PO SCH (17:20)
[2025-07-13] MEDS ORDERED: METOPROLOL SUCCINATE 25 MG TAB.SR.24H PO SCH (17:21)
[2025-07-13] MEDS ORDERED: ATORVASTATIN CALCIUM 20 MG TABLET PO SCH (18:24)
[2025-07-13 18:53] LABS: INR 0.94
[2025-07-13 18:55] VITALS: BP 165/83
[2025-07-13 20:29] VITALS: BP 198/87; O2SAT 95
[2025-07-13 22:25] VITALS: BP 179/72
[2025-07-13] MEDS ORDERED: AMLODIPINE BESYLATE 5 MG TABLET PO STA (22:46)
[2025-07-14 00:51] VITALS: BP 152/74; O2SAT 96
[2025-07-14] MEDS ORDERED: INSULIN LISPRO 1,000 UNIT/10 ML UNITS SUBCUTANEO SCH (08:00)
[2025-07-14] MEDS ORDERED: INSULIN GLARGINE,HUM.REC.ANLOG 1,000 UNITS/10 ML UNITS SUBCUTANEO SCH (09:00)
[2025-07-14 16:46] VITALS: BP 161/73; O2SAT 96
[2025-07-14] MEDS ORDERED: VANCOMYCIN HCL 5 MG/ML REDILUIDO IV SCH (17:00)
[2025-07-14 17:53] LABS: BASO % 0.9 % (0.1-1.2); EOS # 0.15 (0.04-0.54); EOS % 2.6 % (0.7-7.0); LYMPH # 1.50 (1.18-3.74); LYMPH % 26.0 % (19.3-53.1); MEAN PLATELET VOLUME 10.00 fl (9.4-12.4); MONO # 0.48 (0.24-0.82); MONO % 8.3 % (4.7-12.5); NEUT # 3.59 (1.56-6.13); NEUT % 62.0 % (34.0-71.1); RED CELL DISTRIBUTION WIDTH 15.1 % (11.6-14.4)
[2025-07-14] MEDS ORDERED: LINEZOLID 600 MG TABLET PO SCH (21:00)
[2025-07-15 01:21] VITALS: BP 144/79; O2SAT 96
[2025-07-15] MEDS ORDERED: INSULIN LISPRO 1,000 UNIT/10 ML UNITS SUBCUTANEO SCH (08:00)
[2025-07-15 08:23] VITALS: BP 178/81; O2SAT 94
[2025-07-15] MEDS ORDERED: INSULIN GLARGINE,HUM.REC.ANLOG 1,000 UNITS/10 ML UNITS SUBCUTANEO SCH (09:00)
[2025-07-15] MEDS ORDERED: TRAMADOL HCL 50 MG TABLET PO PRN (11:15)
[2025-07-15] MEDS ORDERED: DOCUSATE SODIUM 100MG CAP PO NR (12:00)
[2025-07-15] MEDS ORDERED: LACTULOSE 20 G/30 ML BLIST.PACK PO NR (12:00)
[2025-07-15 16:00] VITALS: BP 111/65; O2SAT 97
[2025-07-15] MEDS ORDERED: LACTOBACILLUS ACIDOPHILUS 1 CAP CAP PO SCH (17:00)
[2025-07-15] MEDS ORDERED: DOCUSATE SODIUM 100MG CAP PO SCH (17:00)
[2025-07-16 00:54] VITALS: BP 166/75; O2SAT 97
[2025-07-16] MEDS ORDERED: INSULIN LISPRO 1,000 UNIT/10 ML UNITS SUBCUTANEO SCH (08:00)
[2025-07-16 08:27] VITALS: BP 165/82; O2SAT 97
[2025-07-16] MEDS ORDERED: CHLORHEXIDINE GLUCONATE 240 ML BOTTLE TOP SCH (09:00)
[2025-07-16] MEDS ORDERED: INSULIN GLARGINE,HUM.REC.ANLOG 1,000 UNITS/10 ML UNITS SUBCUTANEO SCH (09:00)
[2025-07-16] MEDS ORDERED: CHLORHEXIDINE GLUCONATE 120 ML BOTTLE TOP SCH (09:00)
[2025-07-16 17:32] VITALS: BP 129/74; O2SAT 97
[2025-07-17 00:17] VITALS: BP 133/67; O2SAT 95
[2025-07-17] MEDS ORDERED: ENOXAPARIN SODIUM 40 MG/0.4 ML SYRINGE SUBCUTANEO SCH (09:00)
[2025-07-17 17:20] VITALS: BP 146/75; O2SAT 98
[2025-07-18 07:22] LABS: BASO % 1.0 % (0.1-1.2); EOS # 0.15 (0.04-0.54); EOS % 3.1 % (0.7-7.0); LYMPH # 1.46 (1.18-3.74); LYMPH % 30.0 % (19.3-53.1); MEAN PLATELET VOLUME 9.90 fl (9.4-12.4); MONO # 0.47 (0.24-0.82); MONO % 9.7 % (4.7-12.5); NEUT # 2.72 (1.56-6.13); NEUT % 56.0 % (34.0-71.1); RED CELL DISTRIBUTION WIDTH 14.6 % (11.6-14.4)
[2025-07-18 07:26] LABS: BUN CREA RATIO 21.0 (7.0-25.0); CREATININE SERUM 1.3 mg/dL (0.55-1.02); GFR 41.5; OSMOLALITY SERUM 298.0 MOSM/KG (275-295)
[2025-07-18 07:35] LABS: GLUCOSE FASTING 200.0 mg/dL (65-100)
[2025-07-18 08:00] VITALS: BP 173/72; O2SAT 96
[2025-07-18 16:10] VITALS: BP 122/71; O2SAT 98
[2025-07-19 00:30] VITALS: BP 141/77; O2SAT 97
[2025-07-19 08:16] VITALS: BP 188/81; O2SAT 97
[2025-07-19] MEDS ORDERED: INSULIN LISPRO 1,000 UNIT/10 ML UNITS SUBCUTANEO SCH (12:00)
[2025-07-19 16:00] VITALS: BP 148/70; O2SAT 95
[2025-07-20 00:34] VITALS: BP 143/77; O2SAT 97
[2025-07-20 08:29] VITALS: BP 182/79; O2SAT 96
[2025-07-20 16:00] VITALS: BP 160/70; O2SAT 97
[2025-07-21 00:38] VITALS: BP 144/76; O2SAT 97
[2025-07-21 08:00] VITALS: BP 165/73; O2SAT 95
[2025-07-21] MEDS ORDERED: INSULIN LISPRO 1,000 UNIT/10 ML UNITS SUBCUTANEO SCH (08:00)
[2025-07-21] MEDS ORDERED: INSULIN GLARGINE,HUM.REC.ANLOG 1,000 UNITS/10 ML UNITS SUBCUTANEO SCH (09:00)
[2025-07-21] MEDS ORDERED: CEFTRIAXONE SODIUM 2,000 MG VIAL IV SCH (09:00)
[2025-07-21] MEDS ORDERED: ACETAMINOPHEN 325 MG TABLET PO PRN (14:15)
[2025-07-21] MEDS ORDERED: LOPERAMIDE HCL 2 MG CAPSULE PO NR (17:00)
[2025-07-21 17:43] VITALS: BP 127/52; O2SAT 98
== END 2025-07-21 21:09 | disposition home or self-care (01) | DRG 593 ==
LOC: ER 03:39 → MEDI 17:27 → SURG 17:27
PROVIDERS: General Practice; ADMIT Internal Medicine; ATTEND Internal Medicine
DX: L97.829 Non-pressure chronic ulcer of other part of left lower leg with unspecified severity (principal); L03.116 Cellulitis of left lower limb; N17.9 Acute kidney failure, unspecified; E11.9 Type 2 diabetes mellitus without complications; Z79.4 Long term (current) use of insulin; E66.9 Obesity, unspecified; L89.223 Pressure ulcer of left hip, stage 3; F32.A Depression, unspecified; I11.0 Hypertensive heart disease with heart failure; I50.9 Heart failure, unspecified

== ENCOUNTER 2025-07-30 22:56 | Emergency (ER) | payer OTHER ==
[~2025-07-30] VITALS: Ht 170.2 cm; Wt 113.4 kg
[2025-07-31] MEDS ORDERED: NIFEDIPINE 10 MG CAPSULE PO STA (01:03)
[2025-07-31] MEDS ORDERED: ACETAMINOPHEN 500 MG GEL..CAP PO STA (01:04)
[2025-07-31] MEDS ORDERED: ACETAMINOPHEN 500 MG GEL..CAP PO ONE (01:55)
[2025-07-31] MEDS ORDERED: NIFEDIPINE 10 MG CAPSULE PO ONE (01:55)
[2025-07-31 02:16] LABS: BASO % 0.6 % (0.1-1.2); EOS # 0.19 (0.04-0.54); EOS % 2.9 % (0.7-7.0); LYMPH # 1.49 (1.18-3.74); LYMPH % 23.0 % (19.3-53.1); MEAN PLATELET VOLUME 9.40 fl (9.4-12.4); MONO # 0.41 (0.24-0.82); MONO % 6.3 % (4.7-12.5); NEUT # 4.33 (1.56-6.13); NEUT % 66.9 % (34.0-71.1); RED CELL DISTRIBUTION WIDTH 14.8 % (11.6-14.4)
[2025-07-31 03:06] LABS: ALT/SGPT 16.0 U/L (12-78); AST/SGOT 21.0 U/L (15-37); BILIRUBIN TOTAL 0.47 mg/dL (0.3-1.2); BUN CREA RATIO 23.0 (7.0-25.0); CREATININE SERUM 1.32 mg/dL (0.55-1.02); GFR 40.78; GLOBULINA 3.8 G/DL (2.4-3.5); GLUCOSE FASTING 183.0 mg/dL (65-100); OSMOLALITY SERUM 298.0 MOSM/KG (275-295)
[2025-07-31] MEDS ORDERED: KETOROLAC TROMETHAMINE 30 MG VIAL IV STA (04:27)
[2025-07-31] MEDS ORDERED: KETOROLAC TROMETHAMINE 30 MG VIAL ONE (04:34)
[2025-07-31] MEDS ORDERED: DOLOGESIC-DF 51 EACH PO (05:23)
[2025-07-31] MEDS ORDERED: XOPENEX CO1.25 MG/0. IH ×2 (05:23→05:24)
[2025-07-31 15:30] VITALS: O2SAT 95
[2025-07-31 17:13] VITALS: BP 170/80
== END 2025-07-31 18:12 | disposition home or self-care (01) ==
LOC: ER 22:56
PROVIDERS: General Practice
DX: I10 Essential (primary) hypertension (principal); R51.9 Headache, unspecified; M79.621 Pain in right upper arm; M79.622 Pain in left upper arm; Z88.8 Allergy status to other drugs, medicaments and biological substances
CPT/HCPCS: 36415; 71046; 96365; 99283; J1885

== ENCOUNTER 2025-08-12 20:17 | Emergency (ER) | payer OTHER ==
[~2025-08-12] VITALS: Ht 170.2 cm; Wt 113.4 kg
[~2025-08-12 20:17] MED LIST changes: +DOLOGESIC-DF 51 EACH PO; +XOPENEX CO1.25 MG/0. IH
[2025-08-13 00:37] LABS: BASO % 0.7 % (0.1-1.2); EOS # 0.14 (0.04-0.54); EOS % 1.3 % (0.7-7.0); LYMPH # 1.28 (1.18-3.74); LYMPH % 12.2 % (19.3-53.1); MEAN PLATELET VOLUME 9.10 fl (9.4-12.4); MONO # 0.64 (0.24-0.82); MONO % 6.1 % (4.7-12.5); NEUT # 8.29 (1.56-6.13); NEUT % 79.4 % (34.0-71.1); RED CELL DISTRIBUTION WIDTH 15.2 % (11.6-14.4)
[2025-08-13 00:42] LABS: ERYTHROCYTE SEDIMENTATION RATE 71 mm/hr (0-30)
[2025-08-13 00:58] LABS: INR 1.03
[2025-08-13 00:59] LABS: ALT/SGPT 30.0 U/L (12-78); AST/SGOT 18.0 U/L (15-37); BILIRUBIN TOTAL 0.4 mg/dL (0.3-1.2); BUN CREA RATIO 17.0 (7.0-25.0); CREATININE SERUM 1.5 mg/dL (0.55-1.02); GFR 35.19; GLOBULINA 4.0 G/DL (2.4-3.5); GLUCOSE FASTING 107.0 mg/dL (65-100); OSMOLALITY SERUM 290.0 MOSM/KG (275-295)
[2025-08-13 05:40] LABS: URINE APPEARANCE Clear; URINE BILIRRUBIN Negative (NEGATIVE); URINE BLOOD Negative; URINE COLOR Yellow; URINE KETONE Negative (NEGATIVE); URINE LEUKOCYTE Negative; URINE NITRATE Negative; URINE UROBILINOGEN 0.2 E.U./dl
[2025-08-13 05:44] LABS: URINE BACTERIA 539.9 uL (0.0-1933); URINE EPITHELIAL CELLS 16.7 uL (0.0-38.8); URINE RBC 43.4 uL (0.0-20.8); URINE WBC 13.3 uL (0.0-23.2)
[2025-08-13 06:26] LABS: URINE CAST 0.00 uL (0.0-1.40); URINE GLUCOSE >=1000 MG/DL (NEGATIVE); URINE PROTEIN 300 (NEGATIVE); URINE YEAST FEW /hpf
[2025-08-13] MEDS ORDERED: CEPHALEXIN500 MG PO (07:22)
[2025-08-13] MEDS ORDERED: MUPIROCIN1 G1 TOP (07:22)
[2025-08-13] MEDS ORDERED: CEFTRIAXONE SODIUM 1,000 MG VIAL IV STA (07:23)
[2025-08-13] MEDS ORDERED: CEFTRIAXONE SODIUM 1,000 MG VIAL ONE (07:48)
[2025-08-13] MEDS ORDERED: ENALAPRILAT DIHYDRATE 1.25 MG/ML VIAL IV ONE (08:56)
[2025-08-13] MEDS ORDERED: ENALAPRILAT DIHYDRATE 2.5 MG/2 ML VIAL IV STA (08:58)
[2025-08-13] MEDS ORDERED: NIFEDIPINE 10 MG CAPSULE PO ONE (10:11)
[2025-08-13] MEDS ORDERED: NIFEDIPINE 10 MG CAPSULE PO STA (10:12)
[2025-08-13] MEDS ORDERED: ACETAMINOPHEN 500 MG GEL..CAP PO ONE (13:13)
[2025-08-13 16:51] VITALS: BP 167/83; O2SAT 95
== END 2025-08-13 16:53 ==
LOC: ER 20:17
PROVIDERS: Physician Assistant Medical
DX: L03.032 Cellulitis of left toe (principal); E11.9 Type 2 diabetes mellitus without complications; I10 Essential (primary) hypertension; Z88.8 Allergy status to other drugs, medicaments and biological substances
CPT/HCPCS: 36415; 73620; 93005; 96365; 99283; J0696; J3490

== ENCOUNTER 2025-08-16 01:53 | Inpatient (IN) | payer OTHER ==
[~2025-08-16] VITALS: Ht 157.5 cm; Wt 99.8 kg
[~2025-08-16 01:53] MED LIST changes: +CEPHALEXIN500 MG PO; +MUPIROCIN1 G1 TOP
--- NOTE | 2025-08-16 03:37 | NUR ---
PTE ALERTA Y ORIENTADA X3 LLEGA A ER EN AMBULANCIA, SE BEVERLY S/V. PTE REFIERE QUE PRESENTA CELLULITIS EN DEDO DEL PIE DERECHO. SE UBICA PTE EN CAMA AREA DE OBSERVACION.
[2025-08-16] MEDS ORDERED: levoFLOXacin IN DEXTROSE 5 % 500MG/100ML PIGGYBAG IV STA (04:17)
[2025-08-16] MEDS ORDERED: levoFLOXacin IN DEXTROSE 5 % 500MG/100ML PIGGYBAG IV ONE (04:36)
--- NOTE | 2025-08-16 05:24 | NUR ---
SE REALIZA LAB Y SE ADMINISTRA TX CONTRERAS ORDEN MEDICA BAJO MEDIDAS ASEPTICAS. SE ORIENTA PTE QUIEN REFIERE ENTENDER Y ACEPTAR
[2025-08-16 05:38] LABS: BASO % 0.7 % (0.1-1.2); EOS # 0.19 (0.04-0.54); EOS % 2.8 % (0.7-7.0); LYMPH # 1.49 (1.18-3.74); LYMPH % 22.0 % (19.3-53.1); MEAN PLATELET VOLUME 9.60 fl (9.4-12.4); MONO # 0.36 (0.24-0.82); MONO % 5.3 % (4.7-12.5); NEUT # 4.67 (1.56-6.13); NEUT % 69.1 % (34.0-71.1); RED CELL DISTRIBUTION WIDTH 15.0 % (11.6-14.4)
[2025-08-16 06:01] LABS: BUN CREA RATIO 17.0 (7.0-25.0); CREATININE SERUM 1.91 mg/dL (0.55-1.02); GFR 26.62; GLUCOSE FASTING 140.0 mg/dL (65-100); OSMOLALITY SERUM 293.0 MOSM/KG (275-295)
[2025-08-16] MEDS ORDERED: FAMOTIDINE/PF 20 MG in 0.9 % SODIUM CHLORIDE 8 ML IV PUSH SCH (19:11)
[2025-08-16] MEDS ORDERED: PIPERACILLIN/TAZOBACTAM SODIUM 2.25 GM in DEXTROSE 5 % IN WATER 50 ML IV SCH (19:11)
[2025-08-16] MEDS ORDERED: ENOXAPARIN SODIUM 30 MG/0.3 ML SYRINGE SUBCUTANEO SCH (19:14)
[2025-08-16] MEDS ORDERED: DEXTROSE 50 % IN WATER 0.5 G/ML DISP.SYRIN IV PRN (19:15)
[2025-08-16] MEDS ORDERED: hydrALAZINE HCL 20 MG VIAL IV PRN (19:15)
[2025-08-16] MEDS ORDERED: 0.9 % SODIUM CHLORIDE 1,000 ML IV SCH (19:15)
[2025-08-16] MEDS ORDERED: INSULIN LISPRO 1,000 UNIT/10 ML UNITS SUBCUTANEO PRN (19:15)
[2025-08-16] MEDS ORDERED: ACETAMINOPHEN 500 MG GEL..CAP PO PRN (19:15)
[2025-08-17 03:49] LABS: INR 1.02
[2025-08-17 04:00] VITALS: BP 185/77; O2SAT 90
[2025-08-17 04:17] LABS: URINE APPEARANCE Clear; URINE BILIRRUBIN Negative (NEGATIVE); URINE BLOOD Trace; URINE COLOR Yellow; URINE KETONE Negative (NEGATIVE); URINE LEUKOCYTE Negative; URINE NITRATE Negative; URINE UROBILINOGEN 0.2 E.U./dl
[2025-08-17 04:21] LABS: URINE BACTERIA 12.5 uL (0.0-1933); URINE RBC 8.3 uL (0.0-20.8); URINE WBC 6.7 uL (0.0-23.2)
[2025-08-17 04:28] LABS: URINE CAST 0.00 uL (0.0-1.40); URINE EPITHELIAL CELLS 0.7 uL (0.0-38.8); URINE GLUCOSE >=1000 MG/DL (NEGATIVE); URINE PROTEIN 100 (NEGATIVE)
[2025-08-17 08:00] VITALS: BP 146/71; O2SAT 94
[2025-08-17] MEDS ORDERED: NIFEDIPINE 90 MG TAB.SA.OSM PO SCH (09:00)
[2025-08-17] MEDS ORDERED: BUMETANIDE 0.5 MG TABLET PO SCH (09:00)
[2025-08-17] MEDS ORDERED: METOPROLOL SUCCINATE 25 MG TAB.SR.24H PO SCH (09:00)
[2025-08-17] MEDS ORDERED: LEVALBUTEROL HCL 0.63 MG/3 ML SOLUTION IH STA (12:27)
[2025-08-17] MEDS ORDERED: BUDESONIDE 0.5 MG/2 ML AMPUL.NEB IH STA (12:28)
[2025-08-17] MEDS ORDERED: ONDANSETRON HCL 2 MG/ML VIAL IV PRN (12:30)
[2025-08-17] MEDS ORDERED: LEVALBUTEROL HCL 0.63 MG/3 ML SOLUTION IH SCH (14:00)
[2025-08-17] MEDS ORDERED: LACTOBACILLUS ACIDOPHILUS 1 CAP CAP PO SCH (17:00)
[2025-08-17] MEDS ORDERED: LINEZOLID IN DEXTROSE 5% 300 ML IV SCH (21:00)
[2025-08-17] MEDS ORDERED: BUDESONIDE 0.5 MG/2 ML AMPUL.NEB IH SCH (21:00)
[2025-08-18 00:30] VITALS: BP 196/76; O2SAT 95
[2025-08-18 07:50] VITALS: BP 180/73; O2SAT 95
[2025-08-18 16:00] VITALS: BP 151/65; O2SAT 93
[2025-08-18] MEDS ORDERED: SODIUM CHLORIDE 0.45 % 1,000 ML IV SCH (17:30)
[2025-08-18 20:55] VITALS: BP 178/69; O2SAT 92
[2025-08-18] MEDS ORDERED: LINEZOLID 600 MG TABLET PO SCH (21:00)
[2025-08-19] VITALS (18 sets, daily range): BP systolic 121–190; BP diastolic 51–87; O2SAT 90–100
[2025-08-19] MEDS ORDERED: LEVALBUTEROL HCL 0.63 MG/3 ML SOLUTION IH SCH
[2025-08-19] MEDS ORDERED: KETOROLAC TROMETHAMINE 30 MG VIAL IV PRN (00:15)
[2025-08-19] MEDS ORDERED: NITROGLYCERIN IN 5 % DEXTROSE 250 ML IV SCH ×2 (00:15→06:30)
[2025-08-19] MEDS ORDERED: LORazepam 2 MG/ML VIAL ONE (00:51)
[2025-08-19] MEDS ORDERED: NITROGLYCERIN IN 5 % DEXTROSE 50 MG/250 ML BOTTLE IV ONE (00:53)
[2025-08-19] MEDS ORDERED: LORazepam 2 MG/ML VIAL IV STA (01:05)
[2025-08-19 08:56] LABS: BASO % 0.7 % (0.1-1.2); EOS # 0.00 (0.04-0.54); EOS % 0.0 % (0.7-7.0); LYMPH # 0.37 (1.18-3.74); LYMPH % 4.8 % (19.3-53.1); MEAN PLATELET VOLUME 10.80 fl (9.4-12.4); MONO # 0.53 (0.24-0.82); MONO % 6.9 % (4.7-12.5); NEUT # 6.69 (1.56-6.13); NEUT % 87.2 % (34.0-71.1); RED CELL DISTRIBUTION WIDTH 15.6 % (11.6-14.4)
[2025-08-19] MEDS ORDERED: LORazepam 2 MG/ML VIAL IV PUSH SCH (09:00)
[2025-08-19 09:49] LABS: BUN CREA RATIO 15.0 (7.0-25.0); CREATININE SERUM 2.36 mg/dL (0.55-1.02); GFR 20.86; OSMOLALITY SERUM 307.0 MOSM/KG (275-295)
[2025-08-19 09:52] LABS: GLUCOSE FASTING 345.0 mg/dL (65-100)
[2025-08-19 12:12] LABS: CHOL HDL RATIO 2.4 (0-5.0); HDL 51.0 mg/dl (40-60); LDL 56.0 mg/dl (0-130); VLDL 15.0 (0-39)
[2025-08-19] MEDS ORDERED: MEROPENEM 500 MG/VIAL VIAL IV STA (13:23)
[2025-08-19] MEDS ORDERED: FLUCONAZOLE IN NACL,ISO-OSM 200 MG/100 ML PIGGYBAG IV STA (13:24)
[2025-08-19 15:56] LABS: URINE APPEARANCE Turbid; URINE BILIRRUBIN Negative (NEGATIVE); URINE BLOOD Large; URINE COLOR Yellow; URINE KETONE 15 (NEGATIVE); URINE LEUKOCYTE Negative; URINE NITRATE Negative; URINE UROBILINOGEN 0.2 E.U./dl
[2025-08-19 15:58] LABS: URINE BACTERIA 191.0 uL (0.0-1933); URINE CAST 10.12 uL (0.0-1.40); URINE EPITHELIAL CELLS 53.8 uL (0.0-38.8); URINE RBC 85.9 uL (0.0-20.8); URINE WBC 300.0 uL (0.0-23.2)
[2025-08-19 16:14] LABS: URINE CRYSTALS MANY /HPF; URINE GLUCOSE >=1000 MG/DL (NEGATIVE); URINE PROTEIN 300 (NEGATIVE)
[2025-08-19 16:15] LABS: URINE YEAST FEW /hpf
[2025-08-19] MEDS ORDERED: AA 4.25%/CAL/LYTES/DEXT 5% 2,000 ML PERIFERAL SCH (17:00)
[2025-08-19] MEDS ORDERED: AA 4.25%/CAL/LYTES/DEXT 5% 1,000 ML PERIFERAL SCH (17:00)
[2025-08-19] MEDS ORDERED: INSULIN REGULAR, HUMAN 1,000 UNIT/10 ML UNITS IV STA (18:15)
[2025-08-19] MEDS ORDERED: INSULIN NPH HUMAN ISOPHANE 1,000 UNITS/10 ML UNITS SUBCUTANEO STA (18:16)
[2025-08-19] MEDS ORDERED: FAT EMULSIONS 250 ML IV SCH (21:00)
[2025-08-19] MEDS ORDERED: LINEZOLID IN DEXTROSE 5% 300 ML IV SCH (21:00)
[2025-08-19] MEDS ORDERED: MEROPENEM 500 MG/VIAL VIAL IV SCH (21:00)
[2025-08-20] VITALS (23 sets, daily range): BP systolic 127–168; BP diastolic 54–86; O2SAT 96–100
[2025-08-20 08:41] LABS: BASO % 0.5 % (0.1-1.2); EOS # 0.00 (0.04-0.54); EOS % 0.0 % (0.7-7.0); LYMPH # 0.38 (1.18-3.74); LYMPH % 6.9 % (19.3-53.1); MEAN PLATELET VOLUME 10.30 fl (9.4-12.4); MONO # 0.30 (0.24-0.82); MONO % 5.5 % (4.7-12.5); NEUT # 4.74 (1.56-6.13); NEUT % 86.7 % (34.0-71.1); RED CELL DISTRIBUTION WIDTH 15.7 % (11.6-14.4)
[2025-08-20] MEDS ORDERED: INSULIN NPH HUMAN ISOPHANE 1,000 UNITS/10 ML UNITS SUBCUTANEO SCH (09:00)
[2025-08-20 11:47] LABS: ALT/SGPT 27.0 U/L (12-78); AST/SGOT 60.0 U/L (15-37); BILIRUBIN TOTAL 0.54 mg/dL (0.3-1.2); BUN CREA RATIO 21.0 (7.0-25.0); CREATININE SERUM 2.55 mg/dL (0.55-1.02); GFR 19.01; GLOBULINA 3.6 G/DL (2.4-3.5); OSMOLALITY SERUM 316.0 MOSM/KG (275-295)
[2025-08-20 11:48] LABS: GLUCOSE FASTING 291.0 mg/dL (65-100)
[2025-08-20] MEDS ORDERED: PATIENTS OWN MEDICATION (MEDICAMENTO EN PISO) PO NR ×3 (14:30)
[2025-08-20] MEDS ORDERED: FLUCONAZOLE IN NACL,ISO-OSM 2 MG/ML ML IV SCH (17:00)
[2025-08-20] MEDS ORDERED: AA 5 %/CALCIUM/LYTES/DEXT 20 % 2,000 ML CENTRAL SCH (17:00)
[2025-08-21] VITALS (24 sets, daily range): BP systolic 127–183; BP diastolic 55–88; O2SAT 95–100
[2025-08-21 03:28] LABS: BASO % 0.2 % (0.1-1.2); EOS # 0.00 (0.04-0.54); EOS % 0.0 % (0.7-7.0); LYMPH # 0.28 (1.18-3.74); LYMPH % 6.1 % (19.3-53.1); MEAN PLATELET VOLUME 10.60 fl (9.4-12.4); MONO # 0.22 (0.24-0.82); MONO % 4.8 % (4.7-12.5); NEUT # 4.06 (1.56-6.13); NEUT % 88.5 % (34.0-71.1); RED CELL DISTRIBUTION WIDTH 16.1 % (11.6-14.4)
[2025-08-21 03:37] LABS: BUN CREA RATIO 22.0 (7.0-25.0); CREATININE SERUM 2.4 mg/dL (0.55-1.02); GFR 20.39; OSMOLALITY SERUM 319.0 MOSM/KG (275-295)
[2025-08-21 04:29] LABS: GLUCOSE FASTING 460.0 mg/dL (65-100)
[2025-08-21] MEDS ORDERED: INSULIN NPH HUMAN ISOPHANE 1,000 UNITS/10 ML UNITS SUBCUTANEO STA ×2 (05:36→05:39)
[2025-08-21] MEDS ORDERED: INSULIN LISPRO 1,000 UNIT/10 ML UNITS SUBCUTANEO STA (05:38)
[2025-08-21] MEDS ORDERED: INSULIN REGULAR, HUMAN 1,000 UNIT/10 ML UNITS IV STA (05:38)
[2025-08-21] MEDS ORDERED: PATIENTS OWN MEDICATION (MEDICAMENTO EN PISO) PO SCH ×3 (09:00)
[2025-08-21] MEDS ORDERED: INSULIN NPH HUMAN ISOPHANE 1,000 UNITS/10 ML UNITS SUBCUTANEO SCH (13:00)
[2025-08-21] MEDS ORDERED: DOXAZOSIN MESYLATE 2 MG TABLET PO SCH (17:00)
[2025-08-21] MEDS ORDERED: LINEZOLID 600 MG TABLET PO SCH (21:00)
[2025-08-22] VITALS (14 sets, daily range): BP systolic 84–167; BP diastolic 46–82; O2SAT 97–100
[2025-08-22 06:59] LABS: BASO % 0.3 % (0.1-1.2); EOS # 0.00 (0.04-0.54); EOS % 0.0 % (0.7-7.0); LYMPH # 0.55 (1.18-3.74); LYMPH % 16.4 % (19.3-53.1); MEAN PLATELET VOLUME 10.60 fl (9.4-12.4); MONO # 0.21 (0.24-0.82); MONO % 6.3 % (4.7-12.5); NEUT # 2.57 (1.56-6.13); NEUT % 76.4 % (34.0-71.1); RED CELL DISTRIBUTION WIDTH 16.1 % (11.6-14.4)
[2025-08-22 07:39] LABS: BUN CREA RATIO 26.0 (7.0-25.0); CREATININE SERUM 2.2 mg/dL (0.55-1.02); GFR 22.54; OSMOLALITY SERUM 312.0 MOSM/KG (275-295)
[2025-08-22 07:41] LABS: GLUCOSE FASTING 260.0 mg/dL (65-100)
[2025-08-22] MEDS ORDERED: INSULIN NPH HUMAN ISOPHANE 1,000 UNITS/10 ML UNITS SUBCUTANEO STA (07:54)
[2025-08-22] MEDS ORDERED: METOLAZONE 5 MG TABLET PO SCH (09:43)
[2025-08-22] MEDS ORDERED: SILVER SULFADIAZINE 50 GM,NYSTATIN 30 GM,ZINC OXIDE 30 GM TOP SCH (13:00)
[2025-08-22] MEDS ORDERED: INSULIN NPH HUMAN ISOPHANE 1,000 UNITS/10 ML UNITS SUBCUTANEO SCH (13:00)
[2025-08-22] MEDS ORDERED: LACTOBACILLUS ACIDOPHILUS 1 CAP CAP PO SCH (17:00)
[2025-08-22] MEDS ORDERED: AMINO ACIDS/PROTEIN HYDROLYS 30 ML BLIST.PACK PO SCH (17:00)
[2025-08-22] MEDS ORDERED: FLUCONAZOLE 100 MG TABLET PO SCH (17:00)
[2025-08-22 19:39] LABS: FECAL LEUKOCYTES POSITIVE (NEGATIVE)
[2025-08-23 04:00] VITALS: BP 128/54; O2SAT 99
[2025-08-23 07:42] VITALS: BP 135/55; O2SAT 96
[2025-08-23] MEDS ORDERED: SILVER SULFADIAZINE 50 GM JAR TOP ONE (07:48)
[2025-08-23 08:22] LABS: ALT/SGPT 22.0 U/L (12-78); AST/SGOT 42.0 U/L (15-37); BILIRUBIN TOTAL 0.48 mg/dL (0.3-1.2); BUN CREA RATIO 26.0 (7.0-25.0); CREATININE SERUM 2.74 mg/dL (0.55-1.02); GFR 17.5; GLOBULINA 3.7 G/DL (2.4-3.5); OSMOLALITY SERUM 312.0 MOSM/KG (275-295)
[2025-08-23 08:23] LABS: GLUCOSE FASTING 210.0 mg/dL (65-100)
[2025-08-23] MEDS ORDERED: ONDANSETRON HCL 2 MG/ML VIAL IV PRN (08:45)
[2025-08-23] MEDS ORDERED: FAMOTIDINE/PF 20 MG in 0.9 % SODIUM CHLORIDE 8 ML IV PUSH SCH (09:00)
[2025-08-23] MEDS ORDERED: CHLORHEXIDINE GLUCONATE 120 ML BOTTLE TOP ONE (09:06)
[2025-08-23 12:00] VITALS: BP 136/63; O2SAT 97
[2025-08-23 15:17] VITALS: BP 137/80; O2SAT 100
[2025-08-23] MEDS ORDERED: INSULIN GLARGINE,HUM.REC.ANLOG 1,000 UNITS/10 ML UNITS SUBCUTANEO SCH (17:00)
[2025-08-23 20:00] VITALS: BP 138/51; O2SAT 98
[2025-08-24] VITALS (9 sets, daily range): BP systolic 119–148; BP diastolic 53–67; O2SAT 88–100
[2025-08-24] MEDS ORDERED: INSULIN LISPRO 1,000 UNIT/10 ML UNITS SUBCUTANEO SCH (12:00)
[2025-08-24 15:34] LABS: COVID-19 AG NEGATIVE (NEGATIVE)
[2025-08-25] VITALS (9 sets, daily range): BP systolic 130–135; BP diastolic 69–73; O2SAT 94–97
[2025-08-25] MEDS ORDERED: OSELTAMIVIR PHOSPHATE 30MG CAP PO SCH (09:00)
[2025-08-25 14:57] LABS: BASO % 0.3 % (0.1-1.2); EOS # 0.05 (0.04-0.54); EOS % 1.4 % (0.7-7.0); LYMPH # 0.75 (1.18-3.74); LYMPH % 20.8 % (19.3-53.1); MEAN PLATELET VOLUME 10.40 fl (9.4-12.4); MONO # 0.20 (0.24-0.82); MONO % 5.6 % (4.7-12.5); NEUT # 2.57 (1.56-6.13); NEUT % 71.3 % (34.0-71.1); RED CELL DISTRIBUTION WIDTH 14.9 % (11.6-14.4)
[2025-08-25 15:13] LABS: BUN CREA RATIO 33.0 (7.0-25.0); CREATININE SERUM 2.65 mg/dL (0.55-1.02); GFR 18.19
[2025-08-25 15:21] LABS: GLUCOSE FASTING 335.0 mg/dL (65-100); OSMOLALITY SERUM 317.0 MOSM/KG (275-295)
[2025-08-25 16:53] LABS: NEUTROPHILS MAN 69.0 %
[2025-08-25 16:54] LABS: BASOPHIL MAN 1.0 %; EOSINOPHIL MAN 4.0 %; LYMPHOCYTE MAN 17.0 %; MONOCYTE MAN 4.0 %
[2025-08-26] VITALS (9 sets, daily range): BP systolic 114–140; BP diastolic 59–62; O2SAT 93–98
[2025-08-26] MEDS ORDERED: INSULIN LISPRO 1,000 UNIT/10 ML UNITS SUBCUTANEO SCH (08:28)
[2025-08-26 08:50] LABS: ALT/SGPT 19.0 U/L (12-78); AST/SGOT 18.0 U/L (15-37); BILIRUBIN TOTAL 0.48 mg/dL (0.3-1.2); BUN CREA RATIO 32.0 (7.0-25.0); CREATININE SERUM 2.88 mg/dL (0.55-1.02); GFR 16.52; GLOBULINA 4.1 G/DL (2.4-3.5); GLUCOSE FASTING 191.0 mg/dL (65-100); OSMOLALITY SERUM 309.0 MOSM/KG (275-295)
[2025-08-26] MEDS ORDERED: INSULIN GLARGINE,HUM.REC.ANLOG 1,000 UNITS/10 ML UNITS SUBCUTANEO SCH (17:00)
[2025-08-27] VITALS (9 sets, daily range): BP systolic 104–138; BP diastolic 62–70; O2SAT 94–98
[2025-08-27 09:00] LABS: BUN CREA RATIO 30.0 (7.0-25.0); CREATININE SERUM 2.94 mg/dL (0.55-1.02); GFR 16.13; GLUCOSE FASTING 145.0 mg/dL (65-100); OSMOLALITY SERUM 303.0 MOSM/KG (275-295)
[2025-08-28] VITALS (9 sets, daily range): BP systolic 115–134; BP diastolic 55–67; O2SAT 94–98
[2025-08-28 08:05] LABS: BASO % 0.4 % (0.1-1.2); EOS # 0.07 (0.04-0.54); EOS % 1.0 % (0.7-7.0); LYMPH # 0.63 (1.18-3.74); LYMPH % 9.2 % (19.3-53.1); MEAN PLATELET VOLUME 9.30 fl (9.4-12.4); MONO # 0.44 (0.24-0.82); MONO % 6.4 % (4.7-12.5); NEUT # 5.65 (1.56-6.13); NEUT % 82.6 % (34.0-71.1); RED CELL DISTRIBUTION WIDTH 14.6 % (11.6-14.4)
[2025-08-28 09:00] LABS: BUN CREA RATIO 32.0 (7.0-25.0); GFR 17.57; GLUCOSE FASTING 187.0 mg/dL (65-100); OSMOLALITY SERUM 305.0 MOSM/KG (275-295)
[2025-08-28 09:03] LABS: CREATININE SERUM 2.73 mg/dL (0.55-1.02)
[2025-08-28] MEDS ORDERED: ONDANSETRON HCL 2 MG/ML VIAL IV PRN (10:15)
[2025-08-28] MEDS ORDERED: FAMOTIDINE/PF 20 MG/2 ML VIAL IV STA (13:21)
[2025-08-28] MEDS ORDERED: FAMOTIDINE/PF 20 MG/2 ML VIAL IV SCH (21:00)
[2025-08-29] VITALS (10 sets, daily range): BP systolic 134–142; BP diastolic 54–74; O2SAT 85–99
[2025-08-29 07:25] LABS: BUN CREA RATIO 36.0 (7.0-25.0); CREATININE SERUM 2.1 mg/dL (0.55-1.02); GFR 23.79; OSMOLALITY SERUM 312.0 MOSM/KG (275-295)
[2025-08-29 07:27] LABS: GLUCOSE FASTING 216.0 mg/dL (65-100)
[2025-08-29] MEDS ORDERED: INSULIN GLARGINE,HUM.REC.ANLOG 1,000 UNITS/10 ML UNITS SUBCUTANEO SCH (17:00)
[2025-08-30] VITALS (8 sets, daily range): BP systolic 113–127; BP diastolic 54–67; O2SAT 90–99
[2025-08-30] MEDS ORDERED: FAMOTIDINE/PF 20 MG/2 ML VIAL IV SCH (09:00)
[2025-08-31] VITALS (8 sets, daily range): BP systolic 122–146; BP diastolic 57–73; O2SAT 95–98
[2025-08-31] MEDS ORDERED: INSULIN LISPRO 1,000 UNIT/10 ML UNITS SUBCUTANEO SCH (12:00)
[2025-08-31] MEDS ORDERED: INSULIN GLARGINE,HUM.REC.ANLOG 1,000 UNITS/10 ML UNITS SUBCUTANEO SCH (17:00)
[2025-09-01 02:54] VITALS: BP 150/59; O2SAT 96
[2025-09-01 06:09] LABS: BASO % 0.5 % (0.1-1.2); EOS # 0.07 (0.04-0.54); EOS % 0.9 % (0.7-7.0); LYMPH # 0.82 (1.18-3.74); LYMPH % 10.9 % (19.3-53.1); MEAN PLATELET VOLUME 9.40 fl (9.4-12.4); MONO # 0.63 (0.24-0.82); MONO % 8.3 % (4.7-12.5); NEUT # 5.95 (1.56-6.13); NEUT % 78.9 % (34.0-71.1); RED CELL DISTRIBUTION WIDTH 15.0 % (11.6-14.4)
[2025-09-01 07:26] LABS: ALT/SGPT 13.0 U/L (12-78); AST/SGOT 15.0 U/L (15-37); BILIRUBIN TOTAL 0.58 mg/dL (0.3-1.2); BUN CREA RATIO 33.0 (7.0-25.0); CREATININE SERUM 2.27 mg/dL (0.55-1.02); GFR 21.74; GLOBULINA 4.3 G/DL (2.4-3.5); GLUCOSE FASTING 163.0 mg/dL (65-100); OSMOLALITY SERUM 296.0 MOSM/KG (275-295)
[2025-09-01 09:07] VITALS: O2SAT 96
[2025-09-01 14:09] VITALS: O2SAT 90
[2025-09-01 16:42] VITALS: O2SAT 99
[2025-09-01 19:15] VITALS: O2SAT 97
[2025-09-01 19:19] VITALS: BP 120/60; O2SAT 100
[2025-09-02] VITALS (9 sets, daily range): BP systolic 121–135; BP diastolic 67–75; O2SAT 90–98
[2025-09-02] MEDS ORDERED: LEVALBUTEROL HCL 0.63 MG/3 ML SOLUTION IH SCH (17:00)
[2025-09-03] VITALS (7 sets, daily range): BP systolic 134–145; BP diastolic 63–78; O2SAT 96–98
[2025-09-03] MEDS ORDERED: INSULIN GLARGINE,HUM.REC.ANLOG 1,000 UNITS/10 ML UNITS SUBCUTANEO SCH (17:00)
[2025-09-04 01:34] VITALS: BP 131/64; O2SAT 97
[2025-09-04 09:42] VITALS: BP 130/67; O2SAT 98
== END 2025-09-04 12:40 | disposition home or self-care (01) | DRG 637 ==
LOC: ER 01:53 → SURH 19:42 → SEC-K 19:42 → SURH 23:42 → SURG 08-17 16:20 → O/R 08-18 16:13 → SURG 08-18 16:14 → ICU 08-19 18:05 → MEDI 08-23 22:45 → MEDJ 08-24 15:36
PROVIDERS: General Practice; Internal Medicine; Internal Medicine Infectious Disease; Internal Medicine Nephrology; ADMIT Internal Medicine; ATTEND Internal Medicine
PROC: B44GZZZ Ultrasonography of Left Lower Extremity Arteries (ICD-10-PCS; 2025-08-16)
PROC: 3E0F7GC Introduction of Other Therapeutic Substance into Respiratory Tract, Via Natural or Artificial Opening (ICD-10-PCS; 2025-08-17)
PROC: B246ZZZ Ultrasonography of Right and Left Heart (ICD-10-PCS; 2025-08-19)
PROC: 02HV33Z Insertion of Infusion Device into Superior Vena Cava, Percutaneous Approach (ICD-10-PCS; 2025-08-19)
PROC: B548ZZA Ultrasonography of Superior Vena Cava, Guidance (ICD-10-PCS; 2025-08-19)
PROC: 30243N1 Transfusion of Nonautologous Red Blood Cells into Central Vein, Percutaneous Approach (ICD-10-PCS; 2025-08-19)
PROC: 5A09457 Assistance with Respiratory Ventilation, 24-96 Consecutive Hours, Continuous Positive Airway Pressure (ICD-10-PCS; 2025-08-19)
PROC: 4A12X4Z Monitoring of Cardiac Electrical Activity, External Approach (ICD-10-PCS; principal; 2025-08-20)
PROC: BQ3FZZZ Magnetic Resonance Imaging (MRI) of Left Lower Leg (ICD-10-PCS; 2025-08-21)
PROC: 8E0ZXY6 Isolation (ICD-10-PCS; 2025-08-24)
DX: E11.621 Type 2 diabetes mellitus with foot ulcer (principal); I21.A1 Myocardial infarction type 2; J96.01 Acute respiratory failure with hypoxia; R65.20 Severe sepsis without septic shock; E11.52 Type 2 diabetes mellitus with diabetic peripheral angiopathy with gangrene; I13.0 Hypertensive heart and chronic kidney disease with heart failure and stage 1 through stage 4 chronic kidney disease, or unspecified chronic kidney disease; J44.1 Chronic obstructive pulmonary disease with (acute) exacerbation; N17.9 Acute kidney failure, unspecified; L97.529 Non-pressure chronic ulcer of other part of left foot with unspecified severity; L03.032 Cellulitis of left toe; E11.65 Type 2 diabetes mellitus with hyperglycemia; I50.9 Heart failure, unspecified; D64.9 Anemia, unspecified; J10.1 Influenza due to other identified influenza virus with other respiratory manifestations; E11.22 Type 2 diabetes mellitus with diabetic chronic kidney disease; R19.7 Diarrhea, unspecified; N18.9 Chronic kidney disease, unspecified; F41.8 Other specified anxiety disorders; Z79.4 Long term (current) use of insulin; Z87.891 Personal history of nicotine dependence